=== PATIENT | male | born 1950 | race Caucasian/White ===

== ENCOUNTER 2017-03-11 21:13 | Inpatient (IN) | payer MEDICARE, OTHER, MEDICAID ==
[2017-03-11 22:04] VITALS: BP 136/78
[2017-03-11] MEDS ORDERED: Magnesium Hydroxide (MOM) 30 mL UDC PO PRN (22:11)
[2017-03-11] MEDS ORDERED: Haloperidol Lactate 5 mg/mL 1mL Vial IM ONE (22:53)
[2017-03-11] MEDS ORDERED: Haloperidol Lactate 5 mg/mL 1mL Vial ONE (23:09)
--- NOTE | 2017-03-12 09:44 | Psychosocial Evaluation ---
DATE OF SERVICE: 03/12/2017 IDENTIFYING DATA: The patient is a 66-year-old male, resident of the [facility]. Information obtained directly interviewing the patient as well as reviewing the admission paper. JUSTIFICATION FOR HOSPITALIZATION: The patient is admitted here on a voluntary basis in view of his agitation. CHIEF COMPLAINT: "I am upset for being in here. I do not know. They are not giving me my medications." HISTORY OF PRESENT ILLNESS: This is the first psychiatric hospitalization to [facility] for this patient who is reported to have been very agitated. The patient has been having difficult time to cope with the stress. The patient has to be brought in here because of his irritability and anger. Since the patient came in, the patient has been out of control and the patient has to be given a dose of the Haldol to calm him down. The patient during the interview is very agitated and pacing most of the time on the unit. PAST PSYCHIATRIC HISTORY: Details are not known. MEDICAL HISTORY: Physical examination is requested and by Dr. Millan. SUBSTANCE ABUSE HISTORY: None. PHYSICAL OR SEXUAL ABUSE HISTORY: None. MENTAL STATUS EXAMINATION: The patient is a 66-year-old, looking his stated age, cooperative. Eye contact is fair. Mood is irritable. Affect is constricted. Insight and judgment is noted to be impaired. Impulse control seems to be poor. Coping skills are noted to be extremely poor. The patient has been pacing on the unit. The patient has paranoid delusions, but denies any command hallucinations. The patient is alert and awake. The patient is fully aware that he is in the hospital, but patient ____. Short term memory is noted to be poor. Long-term memory seems to be fair. DIAGNOSTIC IMPRESSION: AXIS I: Psychotic disorder, not otherwise specified. AXIS II: None. AXIS III: As per Dr. Millan. IMMEDIATE TREATMENT PLAN: The patient is going to be observed on inpatient unit. Provided with supportive psychotherapy. The patient is going to be closely monitored and encouraged to participate in the groups and verbalize the concerns rather than to act out. JOB# [id number]
[2017-03-12] MEDS: Multivitamin w/ Minerals Tab PO SCH (10:02)
--- NOTE | 2017-03-12 13:34 | Internal Medicine Prog Note ---
Internal Medicine Subjective - Subjective Service Date: 03/12/17 ([id number] [facility] ) Internal Medicine Objective - Physical Exam Vitals and I&O: Vital Signs Temp 98 F 03/12/17 06:53 Pulse 90 03/12/17 06:53 Resp 20 03/12/17 06:53 BP 160/72 03/12/17 06:53 Pulse Ox 97 03/12/17 06:53 Intake & Output 03/11/17 03/12/17 03/12/17 18:59 06:59 18:59 Intake Total 480 Balance 480 Intake: Oral 480 Other: # Voids 1 Active Medications: Current Medications Acetaminophen (Tylenol) 650 mg PO Q4HR PRN PRN Reason: PAIN Stop: 05/10/17 22:10 Amlodipine Besylate (Norvasc) 10 mg PO DAILY JAJA Stop: 05/11/17 08:59 Last Admin: 03/12/17 10:02 Dose: Not Given Docusate Sodium (Colace) 100 mg PO BID PRN PRN Reason: Constipation Stop: 05/10/17 22:10 Donepezil HCl (Aricept) 5 mg PO HS JAJA Stop: 05/11/17 20:59 Hydrochlorothiazide (Hctz) 25 mg PO DAILY JAJA Stop: 05/11/17 08:59 Last Admin: 03/12/17 10:02 Dose: Not Given Lorazepam (Ativan) 0.5 mg PO Q4HR PRN; Protocol PRN Reason: Anxiety Stop: 04/10/17 22:08 Last Admin: 03/12/17 12:36 Dose: 0.5 mg Magnesium Hydroxide (Milk Of Magnesia) 30 ml PO DAILY PRN PRN Reason: Constipation Stop: 05/10/17 22:10 Quetiapine Fumarate (Seroquel) 50 mg PO HS JAJA PRN Reason: Protocol Stop: 05/10/17 22:59 Last Admin: 03/11/17 22:42 Dose: 50 mg Tamsulosin HCl (Flomax) 0.4 mg PO HS JAJA Stop: 05/11/17 20:59 Zolpidem Tartrate (Ambien) 5 mg PO HS PRN PRN Reason: Insomnia Stop: 05/10/17 22:17 Internal Medicine Assmt/Plan - Assessment Assessment: htn psychosis dementia bph
--- NOTE | 2017-03-12 13:52 | History & Physical ---
ADMIT DATE: 03/12/[address] Physical [address] Dr. Kal Millan. CHIEF COMPLAINT: Agitation. HISTORY OF PRESENT ILLNESS: This is a 66-year-old male who is a resident of [facility], who is now admitted to the Geropsych Unit due to agitation towards nursing staff. PAST MEDICAL HISTORY: Psychosis, BPH, hypertension, dementia. PAST SURGICAL HISTORY: Unknown. SOCIAL HISTORY: The patient is a [facility] resident, requiring 24-hour nursing care. MEDICATIONS: Norvasc, Colace, Aricept, hydrochlorothiazide, milk of magnesium, melatonin, MDI, Seroquel, and Flomax. FAMILY HISTORY: Noncontributory. REVIEW OF SYSTEMS: GENERAL: Denies any fevers or chills. CARDIOVASCULAR: Denies chest pain. RESPIRATORY: Denies shortness of breath. GASTROINTESTINAL: Denies nausea, vomiting, abdominal pain. GENITOURINARY: Denies increased frequency or dysuria. NEUROLOGIC: No headaches, seizures, or syncope. All other systems are reviewed and are negative. PHYSICAL EXAMINATION: GENERAL: This is an elderly male, awake with confusion, no apparent distress. VITAL SIGNS: Temperature 98, heart rate 90, blood pressure 116/72, respirations 20, O2 97%. HEENT: Head; normocephalic, atraumatic. NECK: Supple. No mass. LUNGS: Clear bilaterally. HEART: Regular rate and rhythm. ABDOMEN: Soft, nontender. LABORATORY DATA: There are no labs. ASSESSMENT: 1. Agitation. 2. Psychosis. 3. Benign prostatic hypertrophy, hypertension, dementia. PLAN: We will adjust the patient's blood pressure medications accordingly. Fall precautions will be initiated. We will continue to follow this patient. [facility]# [id number]
--- NOTE | 2017-03-12 16:45 | ER Physician Documentation ---
DATE OF SERVICE: 03/11/2017 EMERGENCY ROOM EVALUATION AND TREATMENT A 66-year-old male patient. The patient was sent by Dr. Millan from [facility] located at [address] [place] [id number]. Telephone number [phone]. The reason for sending the patient, the patient was having rough language, and disoriented to time and place, and was shouting and screaming and not cooperative, hence they sent the patient over here. I do not have much more information. The patient's primary physician is Dr. Kal Millan. Alternate physician is Dr. Al Campbell. Psychiatrist is Dr. Gin Berry. ENT specialist is Dr. Bryan Milan. Pharmacist number is [phone]. HISTORY OF PRESENT ILLNESS: The patient is not in a position to give any history of present illness. Review of systems could not be obtained from the patient. The patient mumbles and says different things, and asked me to read different alphabets which are 1, 2, 3, A, B, C, some of those things were written like that I read and showed it to him, but I do not think anything goes into his brain what I read. OTHER MEDICAL HISTORY: Includes that he has hypertension. He has benign prostatic hypertrophy. He has schizophrenia. He has anxiety neurosis. He has unsteadiness on the feet. He has cognitive communication disorder. The patient does not have any urinary tract infection. He has unspecified dementia with behavioral disturbances, paranoid schizophrenia, anxiety disorder, other specified post-procedural status; cannabis abuse, uncomplicated; nicotine dependence, unspecified, complicated. PHYSICAL EXAMINATION: VITAL SIGNS: Shows temperature of 98.2, pulse of 85, respirations of 18, blood pressure 133/88, and 97% saturated and 5 feet 10 inches height, weighing 180 pounds. GENERAL: The patient appears to be awake, alert, oriented. The patient is comfortable. He is in bed. He did not allow the nurse to put the pads to check the patient's heart rate, etc. EKG has been ordered. We will look at it. HEENT: Conjunctivae are pink, sclerae are white. Normal. NECK: Jugular venous pressure is normal. PSYCHIATRIC: The patient is put in bed #5. Main complaint was agitation and aggressive behavior. The patient was not having aggressive behavior here in the Emergency Room, neither was he agitated. He says he should gain strength is about 2 days' time. NEUROLOGIC: Showed that he is not edematous. He does not have any tremors. He does not have any jerking motions or any evidence of DTs or any other alcohol smell or any other smell. He does not seem to be like having cough or flu like symptoms, etc. Overall, general exam, besides being aggressive behavior, some agitation in the past, appears to be within normal limits. No edema, no cyanosis, no petechia, no ecchymosis. No meningeal signs. Reflexes appear to be normal. Plantars are downgoing. Central nervous system is grossly otherwise, besides dementia, aggressive behavior, anxiety, schizophrenia, appears to be within ____ and the other diagnoses that I gave, other than that no other diagnosis is mentioned ____. CHEST: Chest is clear, trachea being central. Slightly emphysematous chest wall. Good air entry in both lungs. No rales, no rhonchi. No bronchial breathing. No evidence of deformity of the chest wall. HEART: Reveals PMI is seen and located in the left fifth intercostal space in the midclavicular line. S1, S2 are normal. Fourth heart sound is heard, third heart sound is absent, second heart sound is physiologically split. No abnormal murmur. No diastolic murmur. No pathological murmur. No pleural or pericardial rub. ABDOMEN: Soft. Liver and spleen not enlarged. Abdomen is slightly protuberant, but liver and spleen not enlarged. No free fluid in the abdominal cavity. Do not appreciate any ascites. No evidence of any hernia. Bowel sounds are normal. CENTRAL NERVOUS SYSTEM: He is otherwise moving all his extremities, and has this aggressive behavior. The patient will be checked here to see if the patient has any medical problem. If no medical problem is detected, clinically, I do not find any significant condition, so if the labs and EKG are found to be normal, then the patient will be admitted to a general psych facility. The patient has [employer] insurance, Medicare number is [phone], ____. On the most recent hospital stay, the patient was given metformin and penicillin, so I am not sure whether the patient is diabetic or not, but we will know it after we get some lab results back, and penicillin, I am not sure whether he is allergic to penicillin or he was given penicillin to treat his medical condition. BPH is there, so we will just order a PSA level, which is not hard to get and hard to do. CLINICAL IMPRESSION: The patient was sent here from [facility] by permission from Dr. Millan for evaluation, and we will evaluate the patient medically. I do not find anything significantly wrong as far as medical condition is concerned other than agitation history, aggressive behavior history, hypertension, benign prostatic hypertrophy, schizophrenia, anxiety, and beside that the patient has history of unsteadiness on the feet. He is bedridden status. He was brought on a stretcher. He is kept on a stretcher in our unit. He has communication deficit. He does not have any lower urinary tract infection even though he has benign prostatic hypertrophy, most of the patient with urinary tract infection are with BPH. The patient has paranoid schizophrenia, anxiety disorder, and unspecified post-procedural seizures. Cannabis abuse in the past, uncomplicated. Nicotine dependence in the past, unspecified, complicated. The plan is to get some lab workup done, get an EKG done, and if everything is normal, the patient's psychiatrist will be called and the patient will be admitted to general psychiatric unit. JOB# [id number]
[2017-03-12] MEDS ORDERED: Non-Formulary Item 1 EA (Melatonin [Melatonin] 3 MG) PO SCH (21:00)
[2017-03-13] MEDS: Multivitamin w/ Minerals Tab PO SCH (09:44)
[2017-03-13] MEDS ORDERED: guaiFENesin 200 MG/10 ML UDC PO PRN (13:44)
--- NOTE | 2017-03-13 13:45 | Internal Medicine Prog Note ---
Internal Medicine Subjective - Subjective Patient seen and examined:: with staff, chart reviewed Patient is:: awake, verbal, interactive Patient Complaints of:: congestion, cough Per staff patient has:: no adverse event, eating well Internal Medicine Objective - Physical Exam Vitals and I&O: Vital Signs Temp 97.8 F 03/13/17 06:30 Pulse 81 03/13/17 09:44 Resp 20 03/13/17 06:30 BP 146/88 03/13/17 09:44 Pulse Ox 95 03/13/17 06:30 Intake & Output 03/12/17 03/13/17 03/13/17 18:59 06:59 18:59 Intake Total 960 Balance 960 Intake: Oral 960 Other: # Voids 2 # Bowel Movements 0 Active Medications: Current Medications Acetaminophen (Tylenol) 650 mg PO Q4HR PRN PRN Reason: PAIN Stop: 05/10/17 22:10 Last Admin: 03/12/17 17:09 Dose: 650 mg Amlodipine Besylate (Norvasc) 10 mg PO DAILY COUNT INCLUDES THE [facility] Stop: 05/11/17 08:59 Last Admin: 03/13/17 09:44 Dose: 10 mg Docusate Sodium (Colace) 100 mg PO BID PRN PRN Reason: Constipation Stop: 05/10/17 22:10 Donepezil HCl (Aricept) 5 mg PO HS COUNT INCLUDES THE [facility] Stop: 05/11/17 20:59 Last Admin: 03/12/17 20:55 Dose: 5 mg Hydrochlorothiazide (Hctz) 25 mg PO DAILY JAJA Stop: 05/11/17 08:59 Last Admin: 03/13/17 09:43 Dose: 25 mg Lorazepam (Ativan) 0.5 mg PO Q4HR PRN; Protocol PRN Reason: Anxiety Stop: 04/10/17 22:08 Last Admin: 03/13/17 09:44 Dose: 0.5 mg Magnesium Hydroxide (Milk Of Magnesia) 30 ml PO DAILY PRN PRN Reason: Constipation Stop: 05/10/17 22:10 Quetiapine Fumarate (Seroquel) 50 mg PO HS COUNT INCLUDES THE [facility] PRN Reason: Protocol Stop: 05/10/17 22:59 Last Admin: 03/12/17 20:55 Dose: 50 mg Tamsulosin HCl (Flomax) 0.4 mg PO HS COUNT INCLUDES THE [facility] Stop: 05/11/17 20:59 Last Admin: 03/12/17 20:55 Dose: 0.4 mg Zolpidem Tartrate (Ambien) 5 mg PO HS PRN PRN Reason: Insomnia Stop: 05/10/17 22:17 Last Admin: 03/12/17 20:55 Dose: 5 mg General: alert, disheveled HEENT: NC/AT, PERRLA, EOMI Neck: Supple, No JVD Lungs: congested Cardiovascular: RRR, Normal S1, Normal S2 Abdomen: soft, non-tender, tender Extremities: excoriation, ecchymosis Neurological: no change, alert, disorganized Internal Medicine Assmt/Plan - Assessment Assessment: - Assessment Assessment: htn psychosis dementia bph cough - Plan Plan: cont on bp meds will add robitussin dayron ugalde rn
--- NOTE | 2017-03-13 20:23 | Progress Notes ---
DATE: 03/13/2017 SUBJECTIVE: Staff was spoken to. The patient is interviewed. Mood is noted to be irritable. Affect is constricted. Coping skills are noted to be poor. The patient is very irritable and angry and stating that he could not figure it out why he has to be in here, he needs all his belongings to be given to him by interviewing. The patient has been very impulsive and he needs to be redirected. The patient is not able to contract for safety at this time. ASSESSMENT: The patient is still psychotic and impulsive. PLAN: To continue the patient with the supportive therapy and followup. JOB# [id number]
[2017-03-14] MEDS: Multivitamin w/ Minerals Tab PO SCH (08:30)
--- NOTE | 2017-03-14 13:10 | Internal Medicine Prog Note ---
Internal Medicine Subjective - Subjective Patient seen and examined:: with staff, chart reviewed Patient is:: awake, verbal, interactive Patient Complaints of:: congestion, cough Per staff patient has:: no adverse event, eating well Internal Medicine Objective - Physical Exam Vitals and I&O: Vital Signs Temp 98.4 F 03/14/17 06:36 Pulse 65 03/14/17 08:30 Resp 19 03/14/17 06:36 BP 140/75 03/14/17 08:30 Pulse Ox 96 03/14/17 06:36 Intake & Output 03/13/17 03/14/17 03/14/17 18:59 06:59 18:59 Intake Total 240 Balance 240 Intake: Oral 240 Other: # Voids 3 # Bowel Movements 0 Active Medications: Current Medications Acetaminophen (Tylenol) 650 mg PO Q4HR PRN PRN Reason: PAIN Stop: 05/10/17 22:10 Last Admin: 03/12/17 17:09 Dose: 650 mg Amlodipine Besylate (Norvasc) 10 mg PO DAILY [facility] Stop: 05/11/17 08:59 Last Admin: 03/14/17 08:30 Dose: 10 mg Docusate Sodium (Colace) 100 mg PO BID PRN PRN Reason: Constipation Stop: 05/10/17 22:10 Donepezil HCl (Aricept) 5 mg PO HS [facility] Stop: 05/11/17 20:59 Last Admin: 03/13/17 21:07 Dose: Not Given Guaifenesin (Robitussin) 200 mg PO Q4H PRN PRN Reason: Cough or Congestion Stop: 05/12/17 13:43 Hydrochlorothiazide (Hctz) 25 mg PO DAILY [facility] Stop: 05/11/17 08:59 Last Admin: 03/14/17 08:30 Dose: 25 mg Lorazepam (Ativan) 0.5 mg PO Q4HR PRN; Protocol PRN Reason: Anxiety Stop: 04/10/17 22:08 Last Admin: 03/14/17 08:31 Dose: 0.5 mg Magnesium Hydroxide (Milk Of Magnesia) 30 ml PO DAILY PRN PRN Reason: Constipation Stop: 05/10/17 22:10 Quetiapine Fumarate (Seroquel) 50 mg PO HS [facility] PRN Reason: Protocol Stop: 05/10/17 22:59 Last Admin: 03/13/17 21:07 Dose: 50 mg Tamsulosin HCl (Flomax) 0.4 mg PO HS JAJA Stop: 05/11/17 20:59 Last Admin: 03/13/17 21:07 Dose: 0.4 mg Zolpidem Tartrate (Ambien) 5 mg PO HS PRN PRN Reason: Insomnia Stop: 05/10/17 22:17 Last Admin: 03/12/17 20:55 Dose: 5 mg General: alert, disheveled HEENT: NC/AT, PERRLA, EOMI Neck: Supple, No JVD Lungs: congested Cardiovascular: RRR, Normal S1, Normal S2 Abdomen: soft, non-tender, tender Extremities: excoriation, ecchymosis Neurological: no change, alert, disorganized Internal Medicine Assmt/Plan - Assessment Assessment: - Assessment Assessment: htn psychosis dementia bph cough - Plan Plan: cont on bp meds will add robitussin dayron ugalde rn
--- NOTE | 2017-03-15 00:13 | Consultation ---
DATE OF CONSULTATION: 03/13/2017 REQUESTING PHYSICIAN: Vasquez Fernández M.D. HISTORY OF PRESENT ILLNESS: The following is by patient report as well as review of medical record. According to record review, the patient is a 66-year-old male who is a resident of [facility]. The patient is being admitted here on a voluntary basis due to increased agitation with staff at his senior living facility. The patient according to the staff at his facility, was having difficulty with regulating his emotions. The patient has been increasingly irritable and angry and difficult to redirect. Upon interview, the patient states that he has not been receiving the correct medications and that he does not see why he has been hospitalized. The patient is restless. The staff here has reported the patient pacing on the unit with poor behavioral redirectability. The patient denied any suicidal ideation, plan or intention at this time. PAST MEDICAL HISTORY: Please see history and physical by Dr. Millan. PAST PSYCHIATRIC HISTORY: This history is unknown at this time. CURRENT MEDICATIONS: Please see medication reconciliation sheet. SUBSTANCE ABUSE HISTORY: None reported or noted. The patient denied any history. PSYCHOSOCIAL HISTORY: The patient lives at [facility]. The patient states no specific confucianism affiliation. The patient did not answer questions about occupational history or educational history. The patient did not answer questions about family members or family history. MENTAL STATUS EXAMINATION: The patient appears to be younger than his stated age. The patient's attitude is guarded and mostly uncooperative. Eye contact is poor. Speech is spontaneous. Mood is irritable. Affect is constricted. Thought process shows to be fixated on discharge as well as medication. The patient's thought process is somewhat concrete, but linear in nature. The patient denied any suicidal ideation, plan or intention. There are some signs of paranoid ideation. The patient denied any auditory or visual hallucinations. The patient's behavior has been restless on the unit and pacing back and forth with poor behavioral redirectability. Impulse control is poor. Concentration is inadequate. The patient was unable to perform the memory evaluation. The patient was able to give answers to milestones. Long-term memory seems to be fair. Short term memory and immediate memory are somewhat impaired. This needs further evaluation. NEUROLOGIC: Sensorium is alert and oriented to person and place, but not date or time. The patient did not perform a logical interpretation of proverbs. Insight is poor. Judgment is compromised. 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 AXIS II: Deferred. AXIS III: Please see history and physical per Dr. Millan. PLAN: The patient has been seen by Dr. Fernández for psychiatric evaluation and evaluation of the patient's psychotropic medications as well as medication management. The patient had been started on Haldol to help calm him down. The patient is to be closely monitored and encouraged to participate in groups and milieu therapy. We will provide supportive therapy as well as reality testing, reality orientation and integration. We will provide de-escalation for the patient to become less agitated. We will provide coping strategies for chronic mental illness. We will provide adjustment to the patient's current circumstances and provide motivational enhancement for him to become compliant with all aspects of his care and treatment without verbally acting out. Once the patient has been stabilized, most likely he will return to [facility] and be followed by both Psychiatry and Psychology at his senior living facility. Thank you, Dr. Fernández for this consult and the opportunity to participate with you in your patient's care. JOB# [id number] MARIANNA
--- NOTE | 2017-03-15 03:44 | Progress Notes ---
DATE: 03/14/2017 SUBJECTIVE: Staff was spoken to. The patient is interviewed. Mood is noted to be irritable. Affect is constricted. Insight and judgment is noted to be still impaired. Impulse control is poor. The patient is going on a tangent. The patient has not been able to contact for safety. The patient has been pacing most of the time on the unit. The patient is very irritable and angry and is talking about the cold and stating that everyone has to salute to him. The patient has been displaying acute mood swings rather than adding a mood stabilizer right away. We have been planning to go with the higher dose on the Seroquel first and try to closely monitor the patient if it is not going to be doing that job, possibly the patient is going to be added with the Depakote and followed up with the supportive therapy. ASSESSMENT: The patient is still grossly psychotic and is responding to internal stimuli. PLAN: To closely monitor the patient. I encouraged the patient to verbalize the concerns rather than to act out. JOB# [id number]
[2017-03-15] MEDS: Multivitamin w/ Minerals Tab PO SCH (08:02)
--- NOTE | 2017-03-15 13:46 | Internal Medicine Prog Note ---
Internal Medicine Subjective - Subjective Service Date: 03/15/17 Patient is:: awake, verbal, interactive Patient Complaints of:: congestion, cough Per staff patient has:: no adverse event, eating well Internal Medicine Objective - Physical Exam Vitals and I&O: Vital Signs Temp 97.9 F 03/15/17 05:45 Pulse 72 03/15/17 08:03 Resp 20 03/15/17 05:45 BP 131/79 03/15/17 08:03 Pulse Ox 94 03/15/17 05:45 Intake & Output 03/14/17 03/15/17 03/15/17 18:59 06:59 18:59 Intake Total 360 Balance 360 Intake: Oral 360 Other: # Voids 2 # Bowel Movements 0 Active Medications: Current Medications Acetaminophen (Tylenol) 650 mg PO Q4HR PRN PRN Reason: PAIN Stop: 05/10/17 22:10 Last Admin: 03/12/17 17:09 Dose: 650 mg Amlodipine Besylate (Norvasc) 10 mg PO DAILY [facility] Stop: 05/11/17 08:59 Last Admin: 03/15/17 08:03 Dose: 10 mg Divalproex Sodium (Depakote Dr) 250 mg PO BID JAJA PRN Reason: Protocol Stop: 05/14/17 08:59 Docusate Sodium (Colace) 100 mg PO BID PRN PRN Reason: Constipation Stop: 05/10/17 22:10 Last Admin: 03/15/17 08:02 Dose: 100 mg Donepezil HCl (Aricept) 5 mg PO HS [facility] Stop: 05/11/17 20:59 Last Admin: 03/14/17 20:58 Dose: 5 mg Guaifenesin (Robitussin) 200 mg PO Q4H PRN PRN Reason: Cough or Congestion Stop: 05/12/17 13:43 Last Admin: 03/15/17 10:25 Dose: 200 mg Hydrochlorothiazide (Hctz) 25 mg PO DAILY JAJA Stop: 05/11/17 08:59 Last Admin: 03/15/17 08:02 Dose: 25 mg Lorazepam (Ativan) 0.5 mg PO Q4HR PRN; Protocol PRN Reason: Anxiety Stop: 04/10/17 22:08 Last Admin: 03/15/17 10:24 Dose: 0.5 mg Magnesium Hydroxide (Milk Of Magnesia) 30 ml PO DAILY PRN PRN Reason: Constipation Stop: 05/10/17 22:10 Quetiapine Fumarate (Seroquel) 50 mg PO BID JAJA PRN Reason: Protocol Stop: 05/14/17 08:59 Last Admin: 03/15/17 08:02 Dose: 50 mg Tamsulosin HCl (Flomax) 0.4 mg PO HS JAJA Stop: 05/11/17 20:59 Last Admin: 03/14/17 20:58 Dose: 0.4 mg Zolpidem Tartrate (Ambien) 5 mg PO HS PRN PRN Reason: Insomnia Stop: 05/10/17 22:17 Last Admin: 03/14/17 20:58 Dose: 5 mg General: alert, disheveled HEENT: NC/AT, PERRLA, EOMI Neck: Supple, No JVD Lungs: congested Cardiovascular: RRR, Normal S1, Normal S2 Abdomen: soft, non-tender, tender Extremities: excoriation, ecchymosis Neurological: no change, alert, disorganized Internal Medicine Assmt/Plan - Assessment Assessment: htn psychosis dementia bph
--- NOTE | 2017-03-15 16:04 | Progress Notes ---
DATE: 03/15/2017 PSYCHIATRIC PROGRESS NOTE SUBJECTIVE: Staff was spoken to. The patient is interviewed. Mood is noted to be irritable. Affect is constricted. The patient is not making any sense. The patient is going on a tangent. The patient has no clue of what he is talking. The patient's Seroquel has been increased to 50 mg twice a day yesterday and still the patient has not been able to contract for safety. The patient is very intrusive. In view of that one, it is decided to start the patient on Depakote DR, which is going to be given at 250 mg twice a day for mood swings and irritability and the patient is going to be followed up with supportive therapy. PLAN: To continue the patient's close monitoring and followup. JOB# [id number]
[2017-03-16] MEDS: Multivitamin w/ Minerals Tab PO SCH (08:19)
--- NOTE | 2017-03-16 15:22 | Internal Medicine Prog Note ---
Internal Medicine Subjective - Subjective Service Date: 03/16/17 Patient is:: awake, verbal, interactive Patient Complaints of:: congestion, cough Per staff patient has:: no adverse event, eating well Internal Medicine Objective - Physical Exam Vitals and I&O: Vital Signs Temp 97.4 F 03/15/17 14:00 Pulse 69 03/16/17 09:56 Resp 20 03/16/17 09:56 BP 111/61 03/16/17 13:28 Pulse Ox 97 03/15/17 14:00 Intake & Output 03/15/17 03/16/17 03/16/17 18:59 06:59 18:59 Intake Total 900 Balance 900 Intake: Oral 900 Other: # Voids 3 # Bowel Movements 1 Active Medications: Current Medications Acetaminophen (Tylenol) 650 mg PO Q4HR PRN PRN Reason: PAIN Stop: 05/10/17 22:10 Last Admin: 03/12/17 17:09 Dose: 650 mg Amlodipine Besylate (Norvasc) 10 mg PO DAILY JAJA Stop: 05/11/17 08:59 Last Admin: 03/16/17 08:19 Dose: 10 mg Divalproex Sodium (Depakote Dr) 250 mg PO BID JAJA PRN Reason: Protocol Stop: 05/15/17 08:59 Last Admin: 03/16/17 09:16 Dose: 250 mg Docusate Sodium (Colace) 100 mg PO BID PRN PRN Reason: Constipation Stop: 05/10/17 22:10 Last Admin: 03/16/17 08:19 Dose: 100 mg Donepezil HCl (Aricept) 5 mg PO HS JAJA Stop: 05/11/17 20:59 Last Admin: 03/15/17 21:01 Dose: 5 mg Guaifenesin (Robitussin) 200 mg PO Q4H PRN PRN Reason: Cough or Congestion Stop: 05/12/17 13:43 Last Admin: 03/15/17 10:25 Dose: 200 mg Hydrochlorothiazide (Hctz) 25 mg PO DAILY JAJA Stop: 05/11/17 08:59 Last Admin: 03/16/17 13:28 Dose: Not Given Lorazepam (Ativan) 0.5 mg PO Q4HR PRN; Protocol PRN Reason: Anxiety Stop: 04/10/17 22:08 Last Admin: 03/16/17 08:19 Dose: 0.5 mg Magnesium Hydroxide (Milk Of Magnesia) 30 ml PO DAILY PRN PRN Reason: Constipation Stop: 05/10/17 22:10 Quetiapine Fumarate (Seroquel) 50 mg PO BID JAJA PRN Reason: Protocol Stop: 05/14/17 08:59 Last Admin: 03/16/17 08:19 Dose: 50 mg Tamsulosin HCl (Flomax) 0.4 mg PO HS JAJA Stop: 05/11/17 20:59 Last Admin: 03/15/17 21:01 Dose: 0.4 mg Zolpidem Tartrate (Ambien) 5 mg PO HS PRN PRN Reason: Insomnia Stop: 05/10/17 22:17 Last Admin: 03/15/17 21:01 Dose: 5 mg General: alert, disheveled HEENT: NC/AT, PERRLA, EOMI Neck: Supple, No JVD Lungs: congested Cardiovascular: RRR, Normal S1, Normal S2 Abdomen: soft, non-tender, tender Extremities: excoriation, ecchymosis Neurological: no change, alert, disorganized Internal Medicine Assmt/Plan - Assessment Assessment: htn psychosis dementia bph Nutritional Asmnt/Malnutr-PDOC - Dietary Evaluation Malnutrition Findings (Please click <Entered> for more info): Nutritional Asmnt/Malnutrition Start: 03/16/17 14: 18 Text: Status: Complete Freq: Document 03/16/17 14:18 LCHENG (Rec: 03/16/17 14:26 LCHENG [email or web address]) Nutritional Asmnt/Malnutrition Patient General Information Nutritional Screening Moderate Risk Diagnosis psychosis Pertinent Medical Hx/Surgical Hx psychosis, BPH, HTN, dementia Subjective Information Pt seen eating lunch in his room at time of visit, easily irritable. Per notes, PO intake 100% x 3 meals on 03/05. Current Diet Order/ Nutrition Support mech soft chopped, PAULINA Pertinent Medications colace, seroquel Pertinent Labs no labs available Nutritional Hx/Data Height 5 ft 10 in Height (Calculated Centimeters) 177.8 Current Weight (lbs) 180 lb Weight (Calculated Kilograms) 81.6 Weight (Calculated Grams) 11652.6 [place] Body Weight 166 % [place] Body Weight 108 Body Mass Index (BMI) 25.8 Weight Status Overweight GI Symptoms GI Symptoms None Last BM 03/15 Difficult in: None Skin Integrity/Comment: skin tear to right arm Current %PO Good (75-100%) Estimated Nutritional Goals Calories/Kcals/Kg 25-30 based on IBW 75kg Kcals Calculated 5246-9133 Protein g/k Protein Calculated 75 Fluid: ml 1875-2250ml (1ml/kcal) Nutritional Problem No current Nutrition Prob Problem N/A Malnutrition Alert Protein-Calorie Malnutrition N/A Is there a minimum of two criteria No selected? Query Text:Check all the applicable criteria. A minimum of two criteria are recommended for diagnosis of either severe or non-severe malnutrition. Intervention/Recommendation Comments 1. Continue with current diet as ordered. 2. Monitor PO intake, wt, labs and skin integrity 3. F/U as low risk in 7 days, 2/1 Expected Outcomes/Goals Expected Outcomes/Goals 1. PO intake to meet at least 75% of nutritional needs. 2. Wt stability, skin to remain intact.
--- NOTE | 2017-03-17 01:01 | Progress Notes ---
DATE: 03/16/2017 PSYCHIATRIC PROGRESS NOTE SUBJECTIVE: Staff was spoken to. The patient is interviewed. Mood is noted to be irritable. Affect is constricted. Insight and judgment at this time are noted to be still impaired. Impulse control is noted to be limited. Coping skills are noted to be very poor. The patient is still responding to internal stimuli. ASSESSMENT: The patient still is psychotic. PLAN: To continue the patient with the current medications. I encouraged the patient to verbalize the concerns rather than to act out. [facility]# [id number]
[2017-03-17] MEDS: Multivitamin w/ Minerals Tab PO SCH (08:35)
--- NOTE | 2017-03-17 13:24 | Internal Medicine Prog Note ---
Internal Medicine Subjective - Subjective Service Date: 03/17/17 Patient is:: awake, verbal, interactive Patient Complaints of:: congestion, cough Per staff patient has:: no adverse event, eating well Internal Medicine Objective - Physical Exam Vitals and I&O: Vital Signs Temp 98.1 F 03/16/17 20:00 Pulse 74 03/17/17 08:35 Resp 19 03/16/17 20:00 BP 132/87 03/17/17 08:36 Pulse Ox 94 03/16/17 20:00 Intake & Output 03/16/17 03/17/17 03/17/17 18:59 06:59 18:59 Intake Total 1000 250 Balance 1000 250 Intake: Oral 1000 250 Other: # Voids 3 2 # Bowel Movements 1 1 Stool Characteristics Soft Formed Active Medications: Current Medications Acetaminophen (Tylenol) 650 mg PO Q4HR PRN PRN Reason: PAIN Stop: 05/10/17 22:10 Last Admin: 03/12/17 17:09 Dose: 650 mg Amlodipine Besylate (Norvasc) 10 mg PO DAILY [facility] Stop: 05/11/17 08:59 Last Admin: 03/17/17 08:35 Dose: 10 mg Divalproex Sodium (Depakote Dr) 250 mg PO BID JAJA PRN Reason: Protocol Stop: 05/15/17 08:59 Last Admin: 03/17/17 08:36 Dose: 250 mg Docusate Sodium (Colace) 100 mg PO BID PRN PRN Reason: Constipation Stop: 05/10/17 22:10 Last Admin: 03/16/17 08:19 Dose: 100 mg Donepezil HCl (Aricept) 5 mg PO HS [facility] Stop: 05/11/17 20:59 Last Admin: 03/16/17 21:09 Dose: 5 mg Guaifenesin (Robitussin) 200 mg PO Q4H PRN PRN Reason: Cough or Congestion Stop: 05/12/17 13:43 Last Admin: 03/15/17 10:25 Dose: 200 mg Hydrochlorothiazide (Hctz) 25 mg PO DAILY [facility] Stop: 05/11/17 08:59 Last Admin: 03/17/17 08:36 Dose: 25 mg Lorazepam (Ativan) 0.5 mg PO Q4HR PRN; Protocol PRN Reason: Anxiety Stop: 04/10/17 22:08 Last Admin: 03/16/17 21:08 Dose: 0.5 mg Magnesium Hydroxide (Milk Of Magnesia) 30 ml PO DAILY PRN PRN Reason: Constipation Stop: 05/10/17 22:10 Quetiapine Fumarate (Seroquel) 100 mg PO BID JAJA PRN Reason: Protocol Stop: 05/14/17 08:59 Tamsulosin HCl (Flomax) 0.4 mg PO HS JAJA Stop: 05/11/17 20:59 Last Admin: 03/16/17 21:09 Dose: 0.4 mg Zolpidem Tartrate (Ambien) 5 mg PO HS PRN PRN Reason: Insomnia Stop: 05/10/17 22:17 Last Admin: 03/16/17 21:09 Dose: 5 mg General: alert, disheveled HEENT: NC/AT, PERRLA, EOMI Neck: Supple, No JVD Lungs: congested Cardiovascular: RRR, Normal S1, Normal S2 Abdomen: soft, non-tender, tender Extremities: excoriation, ecchymosis Neurological: no change, alert, disorganized Internal Medicine Assmt/Plan - Assessment Assessment: htn psychosis dementia bph - Plan Plan: monitor bp continue current plan of care Nutritional Asmnt/Malnutr-PDOC - Dietary Evaluation Malnutrition Findings (Please click <Entered> for more info): Nutritional Asmnt/Malnutrition Start: 03/16/17 14: 18 Text: Status: Complete Freq: Document 03/16/17 14:18 LCHENG (Rec: 03/16/17 14:26 LCHENG [email or web address]) Nutritional Asmnt/Malnutrition Patient General Information Nutritional Screening Moderate Risk Diagnosis psychosis Pertinent Medical Hx/Surgical Hx psychosis, BPH, HTN, dementia Subjective Information Pt seen eating lunch in his room at time of visit, easily irritable. Per notes, PO intake 100% x 3 meals on 03/05. Current Diet Order/ Nutrition Support mech soft chopped, PAULINA Pertinent Medications colace, seroquel Pertinent Labs no labs available Nutritional Hx/Data Height 5 ft 10 in Height (Calculated Centimeters) 177.8 Current Weight (lbs) 180 lb Weight (Calculated Kilograms) 81.6 Weight (Calculated Grams) 93953.6 [place] Body Weight 166 % [place] Body Weight 108 Body Mass Index (BMI) 25.8 Weight Status Overweight GI Symptoms GI Symptoms None Last BM 03/15 Difficult in: None Skin Integrity/Comment: skin tear to right arm Current %PO Good (75-100%) Estimated Nutritional Goals Calories/Kcals/Kg 25-30 based on IBW 75kg Kcals Calculated 7033-2721 Protein g/k Protein Calculated 75 Fluid: ml 1875-2250ml (1ml/kcal) Nutritional Problem No current Nutrition Prob Problem N/A Malnutrition Alert Protein-Calorie Malnutrition N/A Is there a minimum of two criteria No selected? Query Text:Check all the applicable criteria. A minimum of two criteria are recommended for diagnosis of either severe or non-severe malnutrition. Intervention/Recommendation Comments 1. Continue with current diet as ordered. 2. Monitor PO intake, wt, labs and skin integrity 3. F/U as low risk in 7 days, 2/1 Expected Outcomes/Goals Expected Outcomes/Goals 1. PO intake to meet at least 75% of nutritional needs. 2. Wt stability, skin to remain intact.
--- NOTE | 2017-03-17 16:30 | Progress Notes ---
DATE: 03/17/2017 SUBJECTIVE: Staff was spoken to. The patient is interviewed. Mood is noted to be irritable. Affect is constricted. Continues to be irritable and angry. The patient is actively responding to internal stimuli. Currently, he is on 50 mg twice a day of the Seroquel and has been able to tolerate the medications. No side effects to the medications are noted. The patient is also placed on the Depakote low dose to contain the patient's mood swings. The patient has been able to tolerate. ASSESSMENT: The patient is still impulsive and psychotic. PLAN: To increase the dose on the Seroquel to 500 mg twice a day and follow. JOB# [id number]
[2017-03-18] MEDS: Multivitamin w/ Minerals Tab PO SCH (09:44)
--- NOTE | 2017-03-18 10:43 | Internal Medicine Prog Note ---
Internal Medicine Subjective - Subjective Patient seen and examined:: with staff, chart reviewed Patient is:: awake, verbal, interactive Patient Complaints of:: congestion, cough Per staff patient has:: no adverse event, eating well Internal Medicine Objective - Physical Exam Vitals and I&O: Vital Signs Temp 97.2 F 03/17/17 16:16 Pulse 64 03/18/17 09:44 Resp 18 03/17/17 16:16 BP 123/84 03/18/17 09:44 Pulse Ox 98 03/17/17 16:16 Intake & Output 03/17/17 03/18/17 03/18/17 18:59 06:59 18:59 Intake Total 1000 Balance 1000 Intake: Oral 1000 Other: # Voids 3 # Bowel Movements 1 Active Medications: Current Medications Acetaminophen (Tylenol) 650 mg PO Q4HR PRN PRN Reason: PAIN Stop: 05/10/17 22:10 Last Admin: 03/12/17 17:09 Dose: 650 mg Amlodipine Besylate (Norvasc) 10 mg PO DAILY JAJA Stop: 05/11/17 08:59 Last Admin: 03/18/17 09:44 Dose: 10 mg Divalproex Sodium (Depakote Dr) 250 mg PO BID JAJA PRN Reason: Protocol Stop: 05/15/17 08:59 Last Admin: 03/18/17 09:44 Dose: 250 mg Docusate Sodium (Colace) 100 mg PO BID PRN PRN Reason: Constipation Stop: 05/10/17 22:10 Last Admin: 03/16/17 08:19 Dose: 100 mg Donepezil HCl (Aricept) 5 mg PO HS JAJA Stop: 05/11/17 20:59 Last Admin: 03/17/17 20:35 Dose: 5 mg Guaifenesin (Robitussin) 200 mg PO Q4H PRN PRN Reason: Cough or Congestion Stop: 05/12/17 13:43 Last Admin: 03/15/17 10:25 Dose: 200 mg Hydrochlorothiazide (Hctz) 25 mg PO DAILY JAJA Stop: 05/11/17 08:59 Last Admin: 03/18/17 09:43 Dose: 25 mg Lorazepam (Ativan) 0.5 mg PO Q4HR PRN; Protocol PRN Reason: Anxiety Stop: 04/10/17 22:08 Last Admin: 03/16/17 21:08 Dose: 0.5 mg Magnesium Hydroxide (Milk Of Magnesia) 30 ml PO DAILY PRN PRN Reason: Constipation Stop: 05/10/17 22:10 Quetiapine Fumarate (Seroquel) 100 mg PO BID JAJA PRN Reason: Protocol Stop: 05/14/17 08:59 Last Admin: 03/18/17 09:43 Dose: 100 mg Tamsulosin HCl (Flomax) 0.4 mg PO HS JAJA Stop: 05/11/17 20:59 Last Admin: 03/17/17 20:35 Dose: 0.4 mg Zolpidem Tartrate (Ambien) 5 mg PO HS PRN PRN Reason: Insomnia Stop: 05/10/17 22:17 Last Admin: 03/17/17 20:35 Dose: 5 mg General: alert, disheveled HEENT: NC/AT, PERRLA, EOMI Neck: Supple, No JVD Lungs: congested Cardiovascular: RRR, Normal S1, Normal S2 Abdomen: soft, non-tender, tender Extremities: excoriation, ecchymosis Neurological: no change, alert, disorganized Internal Medicine Assmt/Plan - Assessment Assessment: - Assessment Assessment: htn psychosis dementia bph cough - Plan Plan: cont on bp meds will add robitussin cpm tram rn Nutritional Asmnt/Malnutr-PDOC - Dietary Evaluation Malnutrition Findings (Please click <Entered> for more info): Nutritional Asmnt/Malnutrition Start: 03/16/17 14: 18 Text: Status: Complete Freq: Document 03/16/17 14:18 JORDON (Rec: 03/16/17 14:[email or web address] Nutritional Asmnt/Malnutrition Patient General Information Nutritional Screening Moderate Risk Diagnosis psychosis Pertinent Medical Hx/Surgical Hx psychosis, BPH, HTN, dementia Subjective Information Pt seen eating lunch in his room at time of visit, easily irritable. Per notes, PO intake 100% x 3 meals on 03/05. Current Diet Order/ Nutrition Support mech soft chopped, PAULINA Pertinent Medications colace, seroquel Pertinent Labs no labs available Nutritional Hx/Data Height 1.78 m Height (Calculated Centimeters) 177.8 Current Weight (lbs) 81.647 kg Weight (Calculated Kilograms) 81.6 Weight (Calculated Grams) 19655.6 [place] Body Weight 166 % [place] Body Weight 108 Body Mass Index (BMI) 25.8 Weight Status Overweight GI Symptoms GI Symptoms None Last BM 03/15 Difficult in: None Skin Integrity/Comment: skin tear to right arm Current %PO Good (75-100%) Estimated Nutritional Goals Calories/Kcals/Kg 25-30 based on IBW 75kg Kcals Calculated 4451-5384 Protein g/k Protein Calculated 75 Fluid: ml 1875-2250ml (1ml/kcal) Nutritional Problem No current Nutrition Prob Problem N/A Malnutrition Alert Protein-Calorie Malnutrition N/A Is there a minimum of two criteria No selected? Query Text:Check all the applicable criteria. A minimum of two criteria are recommended for diagnosis of either severe or non-severe malnutrition. Intervention/Recommendation Comments 1. Continue with current diet as ordered. 2. Monitor PO intake, wt, labs and skin integrity 3. F/U as low risk in 7 days, 2/1 Expected Outcomes/Goals Expected Outcomes/Goals 1. PO intake to meet at least 75% of nutritional needs. 2. Wt stability, skin to remain intact.
[2017-03-19] MEDS: Multivitamin w/ Minerals Tab PO SCH (08:21)
--- NOTE | 2017-03-19 12:14 | Internal Medicine Prog Note ---
Internal Medicine Subjective - Subjective Patient seen and examined:: with staff, chart reviewed Patient is:: awake, verbal, interactive Patient Complaints of:: congestion, cough Per staff patient has:: no adverse event, eating well Internal Medicine Objective - Physical Exam Vitals and I&O: Vital Signs Temp 97.6 F 03/18/17 14:00 Pulse 75 03/19/17 08:22 Resp 20 03/18/17 14:00 BP 128/65 03/19/17 08:22 Pulse Ox 95 03/18/17 14:00 Intake & Output 03/18/17 03/19/17 03/19/17 18:59 06:59 18:59 Intake Total 900 Balance 900 Intake: Oral 900 Other: # Voids 3 # Bowel Movements 1 Active Medications: Current Medications Acetaminophen (Tylenol) 650 mg PO Q4HR PRN PRN Reason: PAIN Stop: 05/10/17 22:10 Last Admin: 03/12/17 17:09 Dose: 650 mg Amlodipine Besylate (Norvasc) 10 mg PO DAILY JAJA Stop: 05/11/17 08:59 Last Admin: 03/19/17 08:22 Dose: 10 mg Divalproex Sodium (Depakote Dr) 250 mg PO BID JAJA PRN Reason: Protocol Stop: 05/15/17 08:59 Last Admin: 03/19/17 08:21 Dose: 250 mg Docusate Sodium (Colace) 100 mg PO BID PRN PRN Reason: Constipation Stop: 05/10/17 22:10 Last Admin: 03/18/17 17:17 Dose: 100 mg Donepezil HCl (Aricept) 5 mg PO HS JAJA Stop: 05/11/17 20:59 Last Admin: 03/18/17 20:27 Dose: 5 mg Guaifenesin (Robitussin) 200 mg PO Q4H PRN PRN Reason: Cough or Congestion Stop: 05/12/17 13:43 Last Admin: 03/15/17 10:25 Dose: 200 mg Hydrochlorothiazide (Hctz) 25 mg PO DAILY JAJA Stop: 05/11/17 08:59 Last Admin: 03/19/17 08:21 Dose: 25 mg Lorazepam (Ativan) 0.5 mg PO Q4HR PRN; Protocol PRN Reason: Anxiety Stop: 04/10/17 22:08 Last Admin: 03/16/17 21:08 Dose: 0.5 mg Magnesium Hydroxide (Milk Of Magnesia) 30 ml PO DAILY PRN PRN Reason: Constipation Stop: 05/10/17 22:10 Quetiapine Fumarate (Seroquel) 100 mg PO BID JAJA PRN Reason: Protocol Stop: 05/14/17 08:59 Last Admin: 03/19/17 08:21 Dose: 100 mg Tamsulosin HCl (Flomax) 0.4 mg PO HS JAJA Stop: 05/11/17 20:59 Last Admin: 03/18/17 20:27 Dose: 0.4 mg Zolpidem Tartrate (Ambien) 5 mg PO HS PRN PRN Reason: Insomnia Stop: 05/10/17 22:17 Last Admin: 03/17/17 20:35 Dose: 5 mg General: alert, disheveled HEENT: NC/AT, PERRLA, EOMI Neck: Supple, No JVD Lungs: congested Cardiovascular: RRR, Normal S1, Normal S2 Abdomen: soft, non-tender, tender Extremities: excoriation, ecchymosis Neurological: no change, alert, disorganized Internal Medicine Assmt/Plan - Assessment Assessment: - Assessment Assessment: htn psychosis dementia bph cough - Plan Plan: cont on bp meds will add robitussin cpm tram rn Nutritional Asmnt/Malnutr-PDOC - Dietary Evaluation Malnutrition Findings (Please click <Entered> for more info): Nutritional Asmnt/Malnutrition Start: 03/16/17 14: 18 Text: Status: Complete Freq: Document 03/16/17 14:18 JORDON (Rec: 03/16/17 14:[email or web address] Nutritional Asmnt/Malnutrition Patient General Information Nutritional Screening Moderate Risk Diagnosis psychosis Pertinent Medical Hx/Surgical Hx psychosis, BPH, HTN, dementia Subjective Information Pt seen eating lunch in his room at time of visit, easily irritable. Per notes, PO intake 100% x 3 meals on 03/05. Current Diet Order/ Nutrition Support mech soft chopped, PAULINA Pertinent Medications colace, seroquel Pertinent Labs no labs available Nutritional Hx/Data Height 1.78 m Height (Calculated Centimeters) 177.8 Current Weight (lbs) 81.647 kg Weight (Calculated Kilograms) 81.6 Weight (Calculated Grams) 83034.6 [place] Body Weight 166 % [place] Body Weight 108 Body Mass Index (BMI) 25.8 Weight Status Overweight GI Symptoms GI Symptoms None Last BM 03/15 Difficult in: None Skin Integrity/Comment: skin tear to right arm Current %PO Good (75-100%) Estimated Nutritional Goals Calories/Kcals/Kg 25-30 based on IBW 75kg Kcals Calculated 8648-5523 Protein g/k Protein Calculated 75 Fluid: ml 1875-2250ml (1ml/kcal) Nutritional Problem No current Nutrition Prob Problem N/A Malnutrition Alert Protein-Calorie Malnutrition N/A Is there a minimum of two criteria No selected? Query Text:Check all the applicable criteria. A minimum of two criteria are recommended for diagnosis of either severe or non-severe malnutrition. Intervention/Recommendation Comments 1. Continue with current diet as ordered. 2. Monitor PO intake, wt, labs and skin integrity 3. F/U as low risk in 7 days, 2/1 Expected Outcomes/Goals Expected Outcomes/Goals 1. PO intake to meet at least 75% of nutritional needs. 2. Wt stability, skin to remain intact.
--- NOTE | 2017-03-19 19:17 | Progress Notes ---
DATE: 03/18/2017 CHIEF COMPLAINT: I saw him fine. SUBJECTIVE: The patient was seen, discussed with staff, still with some anger outburst. The patient keeping to himself; however, he is taking his medication. Sleep is fair. Appetite is fair. MENTAL STATUS EXAMINATION: The patient is still guarded, paranoid. Affect dysphoric. The patient's speech is minimal. Insight is limited. ASSESSMENT: The patient continues to have some anger outburst. PLAN: We will continue medication management. Continue hospitalization. The patient is receiving Depakote 250 mg p.o. b.i.d. and he is also on Seroquel 100 mg p.o. b.i.d. Check Depakote level in 1-2 days. The patient is also receiving Aricept 5 mg daily for poor memory. JOB# [id number]
--- NOTE | 2017-03-19 20:32 | Progress Notes ---
DATE: 03/19/2017 SUBJECTIVE: Staff was spoken to. The patient is interviewed. Mood is noted to be less irritable. Affect is appropriate. The patient's insight and judgment noted to be improving. The patient has been able to verbalize the concerns. The patient, however, has been still responding to the internal stimuli, but no command hallucinations are noted at this time. The patient is currently on Depakote and Seroquel, has been able to tolerate the medication. ASSESSMENT: The patient is still psychotic. PLAN: To continue the patient with the supportive therapy and followup. JOB# [id number]
[2017-03-20] MEDS ORDERED: Haloperidol Lactate 5 mg/mL 1mL Vial IM SCH (00:42)
[2017-03-20] MEDS: Multivitamin w/ Minerals Tab PO SCH (09:22)
--- NOTE | 2017-03-20 13:36 | Internal Medicine Prog Note ---
Internal Medicine Subjective - Subjective Service Date: 03/20/17 Patient is:: awake, verbal, interactive Patient Complaints of:: congestion, cough Per staff patient has:: no adverse event, eating well Internal Medicine Objective - Physical Exam Vitals and I&O: Vital Signs Temp 0 F 03/20/17 05:49 Pulse 86 03/20/17 09:30 Resp 18 03/19/17 14:00 BP 127/104 03/20/17 09:31 Pulse Ox 97 03/19/17 14:00 Intake & Output 03/19/17 03/20/17 03/20/17 18:59 06:59 18:59 Intake Total 1800 60 Balance 1800 60 Intake: Oral 1800 60 Other: # Voids 4 3 # Bowel Movements 1 0 Active Medications: Current Medications Acetaminophen (Tylenol) 650 mg PO Q4HR PRN PRN Reason: PAIN Stop: 05/10/17 22:10 Last Admin: 03/12/17 17:09 Dose: 650 mg Amlodipine Besylate (Norvasc) 10 mg PO DAILY [facility] Stop: 05/11/17 08:59 Last Admin: 03/20/17 09:30 Dose: 10 mg Divalproex Sodium (Depakote Dr) 500 mg PO BID JAJA PRN Reason: Protocol Stop: 05/15/17 08:59 Last Admin: 03/20/17 09:22 Dose: 500 mg Docusate Sodium (Colace) 100 mg PO BID PRN PRN Reason: Constipation Stop: 05/10/17 22:10 Last Admin: 03/18/17 17:17 Dose: 100 mg Donepezil HCl (Aricept) 5 mg PO HS [facility] Stop: 05/11/17 20:59 Last Admin: 03/19/17 21:30 Dose: 5 mg Guaifenesin (Robitussin) 200 mg PO Q4H PRN PRN Reason: Cough or Congestion Stop: 05/12/17 13:43 Last Admin: 03/15/17 10:25 Dose: 200 mg Hydrochlorothiazide (Hctz) 25 mg PO DAILY JAJA Stop: 05/11/17 08:59 Last Admin: 03/20/17 09:31 Dose: 25 mg Lorazepam (Ativan) 0.5 mg PO Q4HR PRN; Protocol PRN Reason: Anxiety Stop: 04/10/17 22:08 Last Admin: 03/19/17 22:11 Dose: 0.5 mg Magnesium Hydroxide (Milk Of Magnesia) 30 ml PO DAILY PRN PRN Reason: Constipation Stop: 05/10/17 22:10 Quetiapine Fumarate (Seroquel) 100 mg PO BID JAJA PRN Reason: Protocol Stop: 05/14/17 08:59 Last Admin: 03/20/17 09:21 Dose: 100 mg Tamsulosin HCl (Flomax) 0.4 mg PO HS JAJA Stop: 05/11/17 20:59 Last Admin: 03/19/17 21:30 Dose: 0.4 mg Zolpidem Tartrate (Ambien) 5 mg PO HS PRN PRN Reason: Insomnia Stop: 05/10/17 22:17 Last Admin: 03/19/17 21:30 Dose: 5 mg General: alert, disheveled HEENT: NC/AT, PERRLA, EOMI Neck: Supple, No JVD Lungs: congested Cardiovascular: RRR, Normal S1, Normal S2 Abdomen: soft, non-tender, tender Extremities: excoriation, ecchymosis Neurological: no change, alert, disorganized Internal Medicine Assmt/Plan - Assessment Assessment: htn psychosis dementia bph - Plan Plan: monitor bp continue current plan of care Nutritional Asmnt/Malnutr-PDOC - Dietary Evaluation Malnutrition Findings (Please click <Entered> for more info): Nutritional Asmnt/Malnutrition Start: 03/16/17 14: 18 Text: Status: Complete Freq: Document 03/16/17 14:18 HEN (Rec: 03/16/17 14:26 [facility] [email or web address]) Nutritional Asmnt/Malnutrition Patient General Information Nutritional Screening Moderate Risk Diagnosis psychosis Pertinent Medical Hx/Surgical Hx psychosis, BPH, HTN, dementia Subjective Information Pt seen eating lunch in his room at time of visit, easily irritable. Per notes, PO intake 100% x 3 meals on 03/05. Current Diet Order/ Nutrition Support mech soft chopped, PAULINA Pertinent Medications colace, seroquel Pertinent Labs no labs available Nutritional Hx/Data Height 5 ft 10 in Height (Calculated Centimeters) 177.8 Current Weight (lbs) 180 lb Weight (Calculated Kilograms) 81.6 Weight (Calculated Grams) 70066.6 [place] Body Weight 166 % [place] Body Weight 108 Body Mass Index (BMI) 25.8 Weight Status Overweight GI Symptoms GI Symptoms None Last BM 03/15 Difficult in: None Skin Integrity/Comment: skin tear to right arm Current %PO Good (75-100%) Estimated Nutritional Goals Calories/Kcals/Kg 25-30 based on IBW 75kg Kcals Calculated 3205-1544 Protein g/k Protein Calculated 75 Fluid: ml 1875-2250ml (1ml/kcal) Nutritional Problem No current Nutrition Prob Problem N/A Malnutrition Alert Protein-Calorie Malnutrition N/A Is there a minimum of two criteria No selected? Query Text:Check all the applicable criteria. A minimum of two criteria are recommended for diagnosis of either severe or non-severe malnutrition. Intervention/Recommendation Comments 1. Continue with current diet as ordered. 2. Monitor PO intake, wt, labs and skin integrity 3. F/U as low risk in 7 days, 2/1 Expected Outcomes/Goals Expected Outcomes/Goals 1. PO intake to meet at least 75% of nutritional needs. 2. Wt stability, skin to remain intact.
--- NOTE | 2017-03-20 16:22 | Progress Notes ---
DATE: 03/19/2017 PSYCHIATRIC PROGRESS NOTE SUBJECTIVE: Staff was spoken to. The patient is interviewed. Mood is noted to be irritable. Affect is constricted. The patient is screaming, yelling, and nonstop talking. The patient has not been compliant with the medication. The patient has been placed on Depakote, which is going to be increased to 500 mg twice a day. The patient is also on Seroquel 100 mg. The patient is not able to calm down. The patient has to be given a dose of Ativan IM. ASSESSMENT: The patient is still psychotic and impulsive. PLAN: To continue the patient with the supportive therapy. I encourage the patient to verbalize the concerns rather than to act out. [facility]# [id number]
[2017-03-21] MEDS: Multivitamin w/ Minerals Tab PO SCH (08:07)
--- NOTE | 2017-03-21 15:41 | Internal Medicine Prog Note ---
Internal Medicine Subjective - Subjective Service Date: 03/21/17 Patient is:: awake, verbal, interactive Patient Complaints of:: congestion, cough Per staff patient has:: no adverse event, eating well Internal Medicine Objective - Physical Exam Vitals and I&O: Vital Signs Temp 97.4 F 03/21/17 06:03 Pulse 93 03/21/17 08:28 Resp 20 03/21/17 06:03 BP 133/90 03/21/17 08:28 Pulse Ox 94 03/21/17 06:03 Intake & Output 03/20/17 03/21/17 03/21/17 18:59 06:59 18:59 Intake Total 900 240 Balance 900 240 Intake: Oral 900 240 Other: # Voids 1 Active Medications: Current Medications Acetaminophen (Tylenol) 650 mg PO Q4HR PRN PRN Reason: PAIN Stop: 05/10/17 22:10 Last Admin: 03/21/17 06:20 Dose: 650 mg Amlodipine Besylate (Norvasc) 10 mg PO DAILY [facility] Stop: 05/11/17 08:59 Last Admin: 03/21/17 08:28 Dose: 10 mg Divalproex Sodium (Depakote Dr) 500 mg PO BID JAJA PRN Reason: Protocol Stop: 05/15/17 08:59 Last Admin: 03/21/17 08:07 Dose: 500 mg Docusate Sodium (Colace) 100 mg PO BID PRN PRN Reason: Constipation Stop: 05/10/17 22:10 Last Admin: 03/18/17 17:17 Dose: 100 mg Donepezil HCl (Aricept) 5 mg PO HS [facility] Stop: 05/11/17 20:59 Last Admin: 03/20/17 21:27 Dose: 5 mg Guaifenesin (Robitussin) 200 mg PO Q4H PRN PRN Reason: Cough or Congestion Stop: 05/12/17 13:43 Last Admin: 03/15/17 10:25 Dose: 200 mg Haloperidol (Haldol) 5 mg PO BID JAJA PRN Reason: Protocol Stop: 05/20/17 08:59 Hydrochlorothiazide (Hctz) 25 mg PO DAILY JAJA Stop: 05/11/17 08:59 Last Admin: 03/21/17 08:28 Dose: 25 mg Lorazepam (Ativan) 0.5 mg PO Q4HR PRN; Protocol PRN Reason: Anxiety Stop: 04/10/17 22:08 Last Admin: 03/21/17 10:16 Dose: 0.5 mg Magnesium Hydroxide (Milk Of Magnesia) 30 ml PO DAILY PRN PRN Reason: Constipation Stop: 05/10/17 22:10 Quetiapine Fumarate (Seroquel) 200 mg PO HS JAJA PRN Reason: Protocol Stop: 05/20/17 20:59 Tamsulosin HCl (Flomax) 0.4 mg PO HS JAJA Stop: 05/11/17 20:59 Last Admin: 03/20/17 21:27 Dose: 0.4 mg Zolpidem Tartrate (Ambien) 5 mg PO HS PRN PRN Reason: Insomnia Stop: 05/10/17 22:17 Last Admin: 03/19/17 21:30 Dose: 5 mg General: alert, disheveled HEENT: NC/AT, PERRLA, EOMI Neck: Supple, No JVD Lungs: congested Cardiovascular: RRR, Normal S1, Normal S2 Abdomen: soft, non-tender, tender Extremities: excoriation, ecchymosis Neurological: no change, alert, disorganized Internal Medicine Assmt/Plan - Assessment Assessment: htn psychosis dementia bph - Plan Plan: monitor bp continue current plan of care Nutritional Asmnt/Malnutr-PDOC - Dietary Evaluation Malnutrition Findings (Please click <Entered> for more info): Nutritional Asmnt/Malnutrition Start: 03/16/17 14: 18 Text: Status: Complete Freq: Document 03/16/17 14:18 LCHENG (Rec: 03/16/17 14:26 [facility] [email or web address]) Nutritional Asmnt/Malnutrition Patient General Information Nutritional Screening Moderate Risk Diagnosis psychosis Pertinent Medical Hx/Surgical Hx psychosis, BPH, HTN, dementia Subjective Information Pt seen eating lunch in his room at time of visit, easily irritable. Per notes, PO intake 100% x 3 meals on 03/05. Current Diet Order/ Nutrition Support mech soft chopped, PAULINA Pertinent Medications colace, seroquel Pertinent Labs no labs available Nutritional Hx/Data Height 5 ft 10 in Height (Calculated Centimeters) 177.8 Current Weight (lbs) 180 lb Weight (Calculated Kilograms) 81.6 Weight (Calculated Grams) 94423.6 [place] Body Weight 166 % [place] Body Weight 108 Body Mass Index (BMI) 25.8 Weight Status Overweight GI Symptoms GI Symptoms None Last BM 03/15 Difficult in: None Skin Integrity/Comment: skin tear to right arm Current %PO Good (75-100%) Estimated Nutritional Goals Calories/Kcals/Kg 25-30 based on IBW 75kg Kcals Calculated 9291-2369 Protein g/k Protein Calculated 75 Fluid: ml 1875-2250ml (1ml/kcal) Nutritional Problem No current Nutrition Prob Problem N/A Malnutrition Alert Protein-Calorie Malnutrition N/A Is there a minimum of two criteria No selected? Query Text:Check all the applicable criteria. A minimum of two criteria are recommended for diagnosis of either severe or non-severe malnutrition. Intervention/Recommendation Comments 1. Continue with current diet as ordered. 2. Monitor PO intake, wt, labs and skin integrity 3. F/U as low risk in 7 days, 2/1 Expected Outcomes/Goals Expected Outcomes/Goals 1. PO intake to meet at least 75% of nutritional needs. 2. Wt stability, skin to remain intact.
--- NOTE | 2017-03-21 15:54 | Progress Notes ---
DATE: 03/21/2017 SUBJECTIVE: Staff was spoken to. The patient is interviewed. Mood is noted to be irritable. Affect is constricted. Insight and judgment at this time are noted to be still impaired. Impulse control seems to be poor. The patient is screaming and yelling and it has been becoming very difficult to contain the patient. The patient has been actively responding to internal stimuli. The patient is currently on Depakote 500 mg twice a day and Seroquel 100 mg twice a day. Since he is not getting any better, it is decided to add the Haldol 5 mg twice a day along with it and continue the Depakote and follow the patient up with supportive therapy. Please also note that the patient is currently getting 100 mg b.i.d. of Seroquel, which is going to be made to 200 mg at bedtime and Haldol is going to be added twice a day and the patient is going to be followed up. The patient is not ready to be discharged to a lower level of care in view of his acute psychosis. JOB# [id number]
[2017-03-22] MEDS: Multivitamin w/ Minerals Tab PO SCH ×3 (08:30→08:36)
[2017-03-22] MEDS ORDERED: Lithium Citrate 300 mg/5 mL Soln UDC PO ONE (15:00)
--- NOTE | 2017-03-22 15:32 | Internal Medicine Prog Note ---
Internal Medicine Subjective - Subjective Service Date: 03/22/17 Patient is:: awake, verbal, interactive Patient Complaints of:: congestion, cough Per staff patient has:: no adverse event, eating well Internal Medicine Objective - Physical Exam Vitals and I&O: Vital Signs Temp 97.8 F 03/22/17 14:00 Pulse 70 03/22/17 14:00 Resp 20 03/22/17 14:00 BP 115/65 03/22/17 14:00 Pulse Ox 97 03/22/17 14:00 Intake & Output 03/21/17 03/22/17 03/22/17 18:59 06:59 18:59 Intake Total 1200 240 Balance 1200 240 Intake: Oral 1200 240 Other: # Voids 4 3 # Bowel Movements 0 0 Active Medications: Current Medications Acetaminophen (Tylenol) 650 mg PO Q4HR PRN PRN Reason: PAIN Stop: 05/10/17 22:10 Last Admin: 03/21/17 20:53 Dose: 650 mg Amlodipine Besylate (Norvasc) 10 mg PO DAILY [facility] Stop: 05/11/17 08:59 Last Admin: 03/22/17 08:30 Dose: Not Given Divalproex Sodium (Depakote Dr) 500 mg PO BID JAJA PRN Reason: Protocol Stop: 05/15/17 08:59 Last Admin: 03/22/17 08:35 Dose: 500 mg Docusate Sodium (Colace) 100 mg PO BID PRN PRN Reason: Constipation Stop: 05/10/17 22:10 Last Admin: 03/18/17 17:17 Dose: 100 mg Donepezil HCl (Aricept) 5 mg PO HS JAJA Stop: 05/11/17 20:59 Last Admin: 03/21/17 20:53 Dose: 5 mg Guaifenesin (Robitussin) 200 mg PO Q4H PRN PRN Reason: Cough or Congestion Stop: 05/12/17 13:43 Last Admin: 03/15/17 10:25 Dose: 200 mg Hydrochlorothiazide (Hctz) 25 mg PO DAILY JAJA Stop: 05/11/17 08:59 Last Admin: 03/22/17 08:29 Dose: Not Given [place] Citrate (Eskalith) 300 mg PO X1 ONE PRN Reason: Protocol Stop: 03/22/17 15:01 Lorazepam (Ativan) 0.5 mg PO Q4HR PRN; Protocol PRN Reason: Anxiety Stop: 04/10/17 22:08 Last Admin: 03/21/17 20:53 Dose: 0.5 mg Magnesium Hydroxide (Milk Of Magnesia) 30 ml PO DAILY PRN PRN Reason: Constipation Stop: 05/10/17 22:10 Quetiapine Fumarate (Seroquel) 200 mg PO HS JAJA PRN Reason: Protocol Stop: 05/20/17 20:59 Last Admin: 03/21/17 20:53 Dose: 200 mg Risperidone (Risperdal) 2 mg PO BID JAJA PRN Reason: Protocol Stop: 05/21/17 08:59 Last Admin: 03/22/17 15:17 Dose: Not Given Tamsulosin HCl (Flomax) 0.4 mg PO HS JAJA Stop: 05/11/17 20:59 Last Admin: 03/21/17 20:53 Dose: 0.4 mg Zolpidem Tartrate (Ambien) 5 mg PO HS PRN PRN Reason: Insomnia Stop: 05/10/17 22:17 Last Admin: 03/21/17 20:53 Dose: 5 mg General: alert, disheveled HEENT: NC/AT, PERRLA, EOMI Neck: Supple, No JVD Lungs: congested Cardiovascular: RRR, Normal S1, Normal S2 Abdomen: soft, non-tender, tender Extremities: excoriation, ecchymosis Neurological: no change, alert, disorganized Internal Medicine Assmt/Plan - Assessment Assessment: htn psychosis dementia bph - Plan Plan: monitor bp continue current plan of care Nutritional Asmnt/Malnutr-PDOC - Dietary Evaluation Malnutrition Findings (Please click <Entered> for more info): Nutritional Asmnt/Malnutrition Start: 03/16/17 14: 18 Text: Status: Complete Freq: Document 03/16/17 14:18 LCJORDONG (Rec: 03/16/17 14:26 [facility] [email or web address]) Nutritional Asmnt/Malnutrition Patient General Information Nutritional Screening Moderate Risk Diagnosis psychosis Pertinent Medical Hx/Surgical Hx psychosis, BPH, HTN, dementia Subjective Information Pt seen eating lunch in his room at time of visit, easily irritable. Per notes, PO intake 100% x 3 meals on 03/05. Current Diet Order/ Nutrition Support mech soft chopped, PAULINA Pertinent Medications colace, seroquel Pertinent Labs no labs available Nutritional Hx/Data Height 5 ft 10 in Height (Calculated Centimeters) 177.8 Current Weight (lbs) 180 lb Weight (Calculated Kilograms) 81.6 Weight (Calculated Grams) 73319.6 [place] Body Weight 166 % [place] Body Weight 108 Body Mass Index (BMI) 25.8 Weight Status Overweight GI Symptoms GI Symptoms None Last BM 03/15 Difficult in: None Skin Integrity/Comment: skin tear to right arm Current %PO Good (75-100%) Estimated Nutritional Goals Calories/Kcals/Kg 25-30 based on IBW 75kg Kcals Calculated 4961-2786 Protein g/k Protein Calculated 75 Fluid: ml 1875-2250ml (1ml/kcal) Nutritional Problem No current Nutrition Prob Problem N/A Malnutrition Alert Protein-Calorie Malnutrition N/A Is there a minimum of two criteria No selected? Query Text:Check all the applicable criteria. A minimum of two criteria are recommended for diagnosis of either severe or non-severe malnutrition. Intervention/Recommendation Comments 1. Continue with current diet as ordered. 2. Monitor PO intake, wt, labs and skin integrity 3. F/U as low risk in 7 days, 2/1 Expected Outcomes/Goals Expected Outcomes/Goals 1. PO intake to meet at least 75% of nutritional needs. 2. Wt stability, skin to remain intact.
[2017-03-22] MEDS ORDERED: Lithium Citrate 300 mg/5 mL Soln UDC PO SCH (17:00)
--- NOTE | 2017-03-23 03:34 | Progress Notes ---
DATE: 03/22/2017 Staff was spoken to. The patient is interviewed. Mood is irritable. Affect, the patient is constantly talking, and he is very hyperverbally intrusive. The patient has to be given a dose of medications at 4:00 in the morning again at a 7:30 in the morning. The patient needs to be redirected. Since the Haldol does not seem to be helping the patient, it was decided to change the Haldol to Risperdal and continue the Depakote and follow the patient up. ASSESSMENT: The patient is still impulsive and psychotic, not ready to be discharged to a lower level of care yet. JOB# [id number]
[2017-03-23] MEDS: Multivitamin w/ Minerals Tab PO SCH (08:42)
--- NOTE | 2017-03-23 13:21 | Internal Medicine Prog Note ---
Internal Medicine Subjective - Subjective Service Date: 03/23/17 Patient is:: awake, verbal, interactive Patient Complaints of:: congestion, cough Per staff patient has:: no adverse event, eating well Internal Medicine Objective - Physical Exam Vitals and I&O: Vital Signs Temp 97.8 F 03/22/17 14:00 Pulse 96 03/23/17 08:40 Resp 20 03/22/17 14:00 BP 149/106 03/23/17 08:41 Pulse Ox 97 03/22/17 14:00 Intake & Output 03/22/17 03/23/17 03/23/17 18:59 06:59 18:59 Intake Total 1000 120 Balance 1000 120 Intake: Oral 1000 120 Other: # Voids 4 3 # Bowel Movements 1 Stool Characteristics Soft Active Medications: Current Medications Acetaminophen (Tylenol) 650 mg PO Q4HR PRN PRN Reason: PAIN Stop: 05/10/17 22:10 Last Admin: 03/21/17 20:53 Dose: 650 mg Amlodipine Besylate (Norvasc) 10 mg PO DAILY [facility] Stop: 05/11/17 08:59 Last Admin: 03/23/17 08:40 Dose: 10 mg Divalproex Sodium (Depakote Dr) 500 mg PO BID JAJA PRN Reason: Protocol Stop: 05/15/17 08:59 Last Admin: 03/23/17 08:41 Dose: 500 mg Docusate Sodium (Colace) 100 mg PO BID PRN PRN Reason: Constipation Stop: 05/10/17 22:10 Last Admin: 03/18/17 17:17 Dose: 100 mg Donepezil HCl (Aricept) 5 mg PO HS [facility] Stop: 05/11/17 20:59 Last Admin: 03/22/17 21:04 Dose: Not Given Guaifenesin (Robitussin) 200 mg PO Q4H PRN PRN Reason: Cough or Congestion Stop: 05/12/17 13:43 Last Admin: 03/15/17 10:25 Dose: 200 mg Hydrochlorothiazide (Hctz) 25 mg PO DAILY [facility] Stop: 05/11/17 08:59 Last Admin: 03/23/17 08:41 Dose: 25 mg Lorazepam (Ativan) 0.5 mg PO Q4HR PRN; Protocol PRN Reason: Anxiety Stop: 04/10/17 22:08 Last Admin: 03/22/17 16:35 Dose: 0.5 mg Magnesium Hydroxide (Milk Of Magnesia) 30 ml PO DAILY PRN PRN Reason: Constipation Stop: 05/10/17 22:10 Risperidone (Risperdal) 2 mg PO BID JAJA PRN Reason: Protocol Stop: 05/21/17 08:59 Last Admin: 03/23/17 08:42 Dose: 2 mg Tamsulosin HCl (Flomax) 0.4 mg PO HS [facility] Stop: 05/11/17 20:59 Last Admin: 03/22/17 21:07 Dose: Not Given Zolpidem Tartrate (Ambien) 5 mg PO HS PRN PRN Reason: Insomnia Stop: 05/10/17 22:17 Last Admin: 03/21/17 20:53 Dose: 5 mg General: alert, disheveled HEENT: NC/AT, PERRLA, EOMI Neck: Supple, No JVD Lungs: congested Cardiovascular: RRR, Normal S1, Normal S2 Abdomen: soft, non-tender, tender Extremities: excoriation, ecchymosis Neurological: no change, alert, disorganized Internal Medicine Assmt/Plan - Assessment Assessment: htn psychosis dementia bph - Plan Plan: monitor bp continue current plan of care Nutritional Asmnt/Malnutr-PDOC - Dietary Evaluation Malnutrition Findings (Please click <Entered> for more info): Nutritional Asmnt/Malnutrition Start: 03/16/17 14: 18 Text: Status: Complete Freq: Document 03/16/17 14:18 LCHENG (Rec: 03/16/17 14:26 [facility] [email or web address]) Nutritional Asmnt/Malnutrition Patient General Information Nutritional Screening Moderate Risk Diagnosis psychosis Pertinent Medical Hx/Surgical Hx psychosis, BPH, HTN, dementia Subjective Information Pt seen eating lunch in his room at time of visit, easily irritable. Per notes, PO intake 100% x 3 meals on 03/05. Current Diet Order/ Nutrition Support mech soft chopped, PAULINA Pertinent Medications colace, seroquel Pertinent Labs no labs available Nutritional Hx/Data Height 5 ft 10 in Height (Calculated Centimeters) 177.8 Current Weight (lbs) 180 lb Weight (Calculated Kilograms) 81.6 Weight (Calculated Grams) 37561.6 [place] Body Weight 166 % [place] Body Weight 108 Body Mass Index (BMI) 25.8 Weight Status Overweight GI Symptoms GI Symptoms None Last BM 1/24 Difficult in: None Skin Integrity/Comment: skin tear to right arm Current %PO Good (75-100%) Estimated Nutritional Goals Calories/Kcals/Kg 25-30 based on IBW 75kg Kcals Calculated 5487-2265 Protein g/k Protein Calculated 75 Fluid: ml 1875-2250ml (1ml/kcal) Nutritional Problem No current Nutrition Prob Problem N/A Malnutrition Alert Protein-Calorie Malnutrition N/A Is there a minimum of two criteria No selected? Query Text:Check all the applicable criteria. A minimum of two criteria are recommended for diagnosis of either severe or non-severe malnutrition. Intervention/Recommendation Comments 1. Continue with current diet as ordered. 2. Monitor PO intake, wt, labs and skin integrity 3. F/U as low risk in 7 days, 2/1 Expected Outcomes/Goals Expected Outcomes/Goals 1. PO intake to meet at least 75% of nutritional needs. 2. Wt stability, skin to remain intact.
[2017-03-23] MEDS ORDERED: chlorproMAZINE 25 mg/mL 2mL Amp ONE (16:13)
[2017-03-23] MEDS ORDERED: chlorproMAZINE 25 mg/mL 2mL Amp IM STA (16:15)
--- NOTE | 2017-03-23 17:05 | Progress Notes ---
DATE: 03/23/2017 Staff was spoken to. The patient is interviewed. Mood is irritable. Affect is constricted. The patient is pacing most of the time, actively responding to internal stimuli, but the aggressive behavior seems to be major concern at this time. The patient is currently on 500 mg twice a day, the Depakote and the lithium carbonate 300 mg twice a day and the patient is also on Seroquel 200 mg at bedtime along with the Risperdal twice a day and since he is on 2 antidepressant medications, the Risperdal is going to be continued and the patient is going to be taken off of the Seroquel at this time and patient is going to be followed up with the supportive therapy. The patient is not ready to be discharged to a lower level of care yet because of his impulsivity and out of control behavior. JOB# [id number]
[2017-03-24] MEDS: Multivitamin w/ Minerals Tab PO SCH (08:04)
--- NOTE | 2017-03-24 15:19 | Internal Medicine Prog Note ---
Internal Medicine Subjective - Subjective Service Date: 03/24/17 Patient is:: awake, verbal, interactive Patient Complaints of:: congestion, cough Per staff patient has:: no adverse event, eating well Internal Medicine Objective - Physical Exam Vitals and I&O: Vital Signs Temp 97.7 F 03/23/17 20:54 Pulse 83 03/24/17 08:03 Resp 20 03/23/17 20:54 BP 143/93 03/24/17 08:04 Pulse Ox 97 03/23/17 20:54 Intake & Output 03/23/17 03/24/17 03/24/17 18:59 06:59 18:59 Intake Total 240 Balance 240 Intake: Oral 240 Other: # Voids 1 Stool Characteristics Formed Active Medications: Current Medications Acetaminophen (Tylenol) 650 mg PO Q4HR PRN PRN Reason: PAIN Stop: 05/10/17 22:10 Last Admin: 03/21/17 20:53 Dose: 650 mg Amlodipine Besylate (Norvasc) 10 mg PO DAILY [facility] Stop: 05/11/17 08:59 Last Admin: 03/24/17 08:03 Dose: 10 mg Divalproex Sodium (Depakote Dr) 500 mg PO BID JAJA PRN Reason: Protocol Stop: 05/15/17 08:59 Last Admin: 03/24/17 08:04 Dose: 500 mg Docusate Sodium (Colace) 100 mg PO BID PRN PRN Reason: Constipation Stop: 05/10/17 22:10 Last Admin: 03/24/17 08:03 Dose: 100 mg Donepezil HCl (Aricept) 5 mg PO HS JAJA Stop: 05/11/17 20:59 Last Admin: 03/23/17 22:09 Dose: 5 mg Guaifenesin (Robitussin) 200 mg PO Q4H PRN PRN Reason: Cough or Congestion Stop: 05/12/17 13:43 Last Admin: 03/15/17 10:25 Dose: 200 mg Hydrochlorothiazide (Hctz) 25 mg PO DAILY JAJA Stop: 05/11/17 08:59 Last Admin: 03/24/17 08:04 Dose: 25 mg Lorazepam (Ativan) 0.5 mg PO Q4HR PRN; Protocol PRN Reason: Anxiety Stop: 04/10/17 22:08 Last Admin: 03/24/17 08:08 Dose: 0.5 mg Magnesium Hydroxide (Milk Of Magnesia) 30 ml PO DAILY PRN PRN Reason: Constipation Stop: 05/10/17 22:10 Risperidone (Risperdal) 2 mg PO BID JAJA PRN Reason: Protocol Stop: 05/21/17 08:59 Last Admin: 03/24/17 08:03 Dose: 2 mg Tamsulosin HCl (Flomax) 0.4 mg PO HS JAJA Stop: 05/11/17 20:59 Last Admin: 03/23/17 22:10 Dose: 0.4 mg Zolpidem Tartrate (Ambien) 5 mg PO HS PRN PRN Reason: Insomnia Stop: 05/10/17 22:17 Last Admin: 03/21/17 20:53 Dose: 5 mg General: alert, disheveled HEENT: NC/AT, PERRLA, EOMI Neck: Supple, No JVD Lungs: congested Cardiovascular: RRR, Normal S1, Normal S2 Abdomen: soft, non-tender, tender Extremities: excoriation, ecchymosis Neurological: no change, alert, disorganized Internal Medicine Assmt/Plan - Assessment Assessment: htn psychosis dementia bph - Plan Plan: monitor bp continue current plan of care Nutritional Asmnt/Malnutr-PDOC - Dietary Evaluation Malnutrition Findings (Please click <Entered> for more info): Nutritional Asmnt/Malnutrition Start: 03/16/17 14: 18 Text: Status: Complete Freq: Document 03/16/17 14:18 HEN (Rec: 03/16/17 14:26 HEN [email or web address]) Nutritional Asmnt/Malnutrition Patient General Information Nutritional Screening Moderate Risk Diagnosis psychosis Pertinent Medical Hx/Surgical Hx psychosis, BPH, HTN, dementia Subjective Information Pt seen eating lunch in his room at time of visit, easily irritable. Per notes, PO intake 100% x 3 meals on 03/05. Current Diet Order/ Nutrition Support mech soft chopped, PAULINA Pertinent Medications colace, seroquel Pertinent Labs no labs available Nutritional Hx/Data Height 5 ft 10 in Height (Calculated Centimeters) 177.8 Current Weight (lbs) 180 lb Weight (Calculated Kilograms) 81.6 Weight (Calculated Grams) 91181.6 [place] Body Weight 166 % [place] Body Weight 108 Body Mass Index (BMI) 25.8 Weight Status Overweight GI Symptoms GI Symptoms None Last BM 03/15 Difficult in: None Skin Integrity/Comment: skin tear to right arm Current %PO Good (75-100%) Estimated Nutritional Goals Calories/Kcals/Kg 25-30 based on IBW 75kg Kcals Calculated 9109-0867 Protein g/k Protein Calculated 75 Fluid: ml 1875-2250ml (1ml/kcal) Nutritional Problem No current Nutrition Prob Problem N/A Malnutrition Alert Protein-Calorie Malnutrition N/A Is there a minimum of two criteria No selected? Query Text:Check all the applicable criteria. A minimum of two criteria are recommended for diagnosis of either severe or non-severe malnutrition. Intervention/Recommendation Comments 1. Continue with current diet as ordered. 2. Monitor PO intake, wt, labs and skin integrity 3. F/U as low risk in 7 days, 2/1 Expected Outcomes/Goals Expected Outcomes/Goals 1. PO intake to meet at least 75% of nutritional needs. 2. Wt stability, skin to remain intact.
--- NOTE | 2017-03-25 00:19 | Progress Notes ---
DATE: 03/24/2017 SUBJECTIVE: Staff was spoken to. The patient is interviewed. Mood is irritable. Affect is constricted. Insight is noted to be still impaired. The patient is currently on Risperdal and valproic acid. He has been able to tolerate the medications, but the patient has to be redirected constantly. No side effects to the medications are noted. ASSESSMENT: The patient is still psychotic and impulsive. PLAN: To continue the patient with supportive therapy and follow up. JOB# [id number]
[2017-03-25] MEDS: Triple Antibiotic 0.94 gm Pkt TP SCH (08:54)
[2017-03-25] MEDS: Multivitamin w/ Minerals Tab PO SCH (08:57)
--- NOTE | 2017-03-26 00:42 | Progress Notes ---
DATE: 03/25/2017 SUBJECTIVE: Staff are spoken to. Patient is interviewed. Mood is irritable. Affect is constricted. Coping skills are noted to be still poor. Sleep and appetite are also noted to be improving. The patient is less aggressive today compared to the other days, insight and judgment to be still impaired. No side effects to the medications are noted. The patient has been given a dose of Ativan that helped him to sleep. ASSESSMENT: The patient is still impulsive. Plan to continue and paranoid. PLAN: To continue the patient with the supportive therapy and place the patient to verbalize the concerns rather than to act out. Please note that the patient has been currently on clonazepam 0.5, and 500 mg of the Depakote, risperidone has been given 2 mg twice a day and has been able to tolerate. JOB# [id number]
[2017-03-26] MEDS: Triple Antibiotic 0.94 gm Pkt TP SCH (08:40)
[2017-03-26] MEDS: Multivitamin w/ Minerals Tab PO SCH (08:41)
--- NOTE | 2017-03-26 15:47 | Internal Medicine Prog Note ---
Internal Medicine Subjective - Subjective Service Date: 03/26/17 Patient is:: awake, verbal, interactive Patient Complaints of:: congestion, cough Per staff patient has:: no adverse event, eating well Internal Medicine Objective - Physical Exam Vitals and I&O: Vital Signs Temp 98.1 F 03/26/17 15:05 Pulse 88 03/26/17 15:05 Resp 20 03/26/17 15:05 BP 114/75 03/26/17 15:05 Pulse Ox 95 03/26/17 15:05 Intake & Output 03/25/17 03/26/17 03/26/17 18:59 06:59 18:59 Intake Total 1000 480 Balance 1000 480 Intake: Oral 1000 480 Other: # Voids 4 2 # Bowel Movements 1 Active Medications: Current Medications Acetaminophen (Tylenol) 650 mg PO Q4HR PRN PRN Reason: PAIN Stop: 05/10/17 22:10 Last Admin: 03/21/17 20:53 Dose: 650 mg Amlodipine Besylate (Norvasc) 10 mg PO DAILY [facility]JA Stop: 05/11/17 08:59 Last Admin: 03/26/17 08:41 Dose: 10 mg Clonazepam (Klonopin) 0.5 mg PO BID JAJA PRN Reason: Protocol Stop: 05/24/17 16:59 Last Admin: 03/26/17 08:41 Dose: 0.5 mg Divalproex Sodium (Depakote Dr) 500 mg PO TID JAJA PRN Reason: Protocol Stop: 05/25/17 20:59 Docusate Sodium (Colace) 100 mg PO BID PRN PRN Reason: Constipation Stop: 05/10/17 22:10 Last Admin: 03/24/17 08:03 Dose: 100 mg Donepezil HCl (Aricept) 5 mg PO HS JAJA Stop: 05/11/17 20:59 Last Admin: 03/25/17 21:54 Dose: 5 mg Guaifenesin (Robitussin) 200 mg PO Q4H PRN PRN Reason: Cough or Congestion Stop: 05/12/17 13:43 Last Admin: 03/15/17 10:25 Dose: 200 mg Hydrochlorothiazide (Hctz) 25 mg PO DAILY [facility]JA Stop: 05/11/17 08:59 Last Admin: 03/26/17 08:40 Dose: 25 mg Lorazepam (Ativan) 0.5 mg PO Q4HR PRN; Protocol PRN Reason: Anxiety Stop: 04/10/17 22:08 Last Admin: 03/25/17 13:56 Dose: 0.5 mg Magnesium Hydroxide (Milk Of Magnesia) 30 ml PO DAILY PRN PRN Reason: Constipation Stop: 05/10/17 22:10 Neomycin/Polymyxin/Bacitracin (Triple Antibiotic Pkt) 1 pkt TP DAILY JAJA Stop: 05/24/17 08:59 Last Admin: 03/26/17 08:40 Dose: 1 pkt Risperidone (Risperdal) 3 mg PO BID JAJA PRN Reason: Protocol Stop: 05/21/17 08:59 Tamsulosin HCl (Flomax) 0.4 mg PO HS JAJA Stop: 05/11/17 20:59 Last Admin: 03/25/17 21:54 Dose: 0.4 mg Zolpidem Tartrate (Ambien) 5 mg PO HS PRN PRN Reason: Insomnia Stop: 05/10/17 22:17 Last Admin: 03/25/17 21:54 Dose: 5 mg General: alert, disheveled HEENT: NC/AT, PERRLA, EOMI Neck: Supple, No JVD Lungs: congested Cardiovascular: RRR, Normal S1, Normal S2 Abdomen: soft, non-tender, tender Extremities: excoriation, ecchymosis Neurological: no change, alert, disorganized Internal Medicine Assmt/Plan - Assessment Assessment: htn psychosis dementia bph - Plan Plan: monitor bp continue current plan of care Nutritional Asmnt/Malnutr-PDOC - Dietary Evaluation Malnutrition Findings (Please click <Entered> for more info): Nutritional Asmnt/Malnutrition Start: 03/16/17 14: 18 Text: Status: Complete Freq: Document 03/16/17 14:18 JORDON (Rec: 03/16/17 14:26 HEN [email or web address]) Nutritional Asmnt/Malnutrition Patient General Information Nutritional Screening Moderate Risk Diagnosis psychosis Pertinent Medical Hx/Surgical Hx psychosis, BPH, HTN, dementia Subjective Information Pt seen eating lunch in his room at time of visit, easily irritable. Per notes, PO intake 100% x 3 meals on 03/05. Current Diet Order/ Nutrition Support mech soft chopped, PAULINA Pertinent Medications colace, seroquel Pertinent Labs no labs available Nutritional Hx/Data Height 5 ft 10 in Height (Calculated Centimeters) 177.8 Current Weight (lbs) 180 lb Weight (Calculated Kilograms) 81.6 Weight (Calculated Grams) 57426.6 [place] Body Weight 166 % [place] Body Weight 108 Body Mass Index (BMI) 25.8 Weight Status Overweight GI Symptoms GI Symptoms None Last BM 03/15 Difficult in: None Skin Integrity/Comment: skin tear to right arm Current %PO Good (75-100%) Estimated Nutritional Goals Calories/Kcals/Kg 25-30 based on IBW 75kg Kcals Calculated 2669-3812 Protein g/k Protein Calculated 75 Fluid: ml 1875-2250ml (1ml/kcal) Nutritional Problem No current Nutrition Prob Problem N/A Malnutrition Alert Protein-Calorie Malnutrition N/A Is there a minimum of two criteria No selected? Query Text:Check all the applicable criteria. A minimum of two criteria are recommended for diagnosis of either severe or non-severe malnutrition. Intervention/Recommendation Comments 1. Continue with current diet as ordered. 2. Monitor PO intake, wt, labs and skin integrity 3. F/U as low risk in 7 days, 2/1 Expected Outcomes/Goals Expected Outcomes/Goals 1. PO intake to meet at least 75% of nutritional needs. 2. Wt stability, skin to remain intact.
--- NOTE | 2017-03-26 23:28 | Progress Notes ---
DATE: 03/26/2017 SUBJECTIVE: Staff was spoken to. The patient is interviewed. Mood is noted to be irritable. Affect is constricted. The patient's family has been spoken to and they are worried about the patient's condition and medications have been clearly explained. The patient is currently on Risperdal 2 mg twice a day. The patient is also on divalproex acid 500 mg twice a day. The patient has been able to tolerate the medications. No side effects to the medications are noted. The patient has been placed on the clonazepam 0.5 mg twice a day. The patient's aggressive behavior seems to be coming down. No side effects to the medications are noted. ASSESSMENT: The patient is still having the mood swings. PLAN: To continue the patient with the supportive therapy and followup. JOB# [id number]
[2017-03-27] MEDS: Multivitamin w/ Minerals Tab PO SCH (08:25)
[2017-03-27] MEDS: Triple Antibiotic 0.94 gm Pkt TP SCH (08:26)
--- NOTE | 2017-03-27 13:15 | Internal Medicine Prog Note ---
Internal Medicine Subjective - Subjective Service Date: 03/27/17 Patient is:: awake, verbal, interactive Patient Complaints of:: congestion, cough Per staff patient has:: no adverse event, eating well Internal Medicine Objective - Results Recent Labs: Laboratory Last Values Valproic Acid 61.8 ug/mL (50.0-100.0) 03/27/17 07:20 - Physical Exam Vitals and I&O: Vital Signs Temp 97.9 F 03/26/17 20:46 Pulse 77 03/27/17 08:24 Resp 19 03/26/17 20:46 BP 144/81 03/27/17 08:25 Pulse Ox 96 03/26/17 20:46 Intake & Output 03/26/17 03/27/17 03/27/17 18:59 06:59 18:59 Intake Total 1000 480 Balance 1000 480 Intake: Oral 1000 480 Other: # Voids 4 1 # Bowel Movements 1 Active Medications: Current Medications Acetaminophen (Tylenol) 650 mg PO Q4HR PRN PRN Reason: PAIN Stop: 05/10/17 22:10 Last Admin: 03/21/17 20:53 Dose: 650 mg Amlodipine Besylate (Norvasc) 10 mg PO DAILY [facility] Stop: 05/11/17 08:59 Last Admin: 03/27/17 08:24 Dose: 10 mg Clonazepam (Klonopin) 0.5 mg PO BID [facility] PRN Reason: Protocol Stop: 05/24/17 16:59 Last Admin: 03/27/17 08:24 Dose: 0.5 mg Divalproex Sodium (Depakote Dr) 500 mg PO TID JAJA PRN Reason: Protocol Stop: 05/25/17 20:59 Last Admin: 03/27/17 08:25 Dose: 500 mg Docusate Sodium (Colace) 100 mg PO BID PRN PRN Reason: Constipation Stop: 05/10/17 22:10 Last Admin: 03/24/17 08:03 Dose: 100 mg Donepezil HCl (Aricept) 5 mg PO HS [facility] Stop: 05/11/17 20:59 Last Admin: 03/26/17 20:50 Dose: 5 mg Guaifenesin (Robitussin) 200 mg PO Q4H PRN PRN Reason: Cough or Congestion Stop: 05/12/17 13:43 Last Admin: 03/15/17 10:25 Dose: 200 mg Hydrochlorothiazide (Hctz) 25 mg PO DAILY JAJA Stop: 05/11/17 08:59 Last Admin: 03/27/17 08:25 Dose: 25 mg Lorazepam (Ativan) 0.5 mg PO Q4HR PRN; Protocol PRN Reason: Anxiety Stop: 04/10/17 22:08 Last Admin: 03/26/17 20:52 Dose: 0.5 mg Magnesium Hydroxide (Milk Of Magnesia) 30 ml PO DAILY PRN PRN Reason: Constipation Stop: 05/10/17 22:10 Neomycin/Polymyxin/Bacitracin (Triple Antibiotic Pkt) 1 pkt TP DAILY JAJA Stop: 05/24/17 08:59 Last Admin: 03/27/17 08:26 Dose: 1 pkt Risperidone (Risperdal) 3 mg PO BID JAJA PRN Reason: Protocol Stop: 05/21/17 08:59 Last Admin: 03/27/17 08:25 Dose: 3 mg Tamsulosin HCl (Flomax) 0.4 mg PO HS JAJA Stop: 05/11/17 20:59 Last Admin: 03/26/17 20:51 Dose: 0.4 mg Zolpidem Tartrate (Ambien) 5 mg PO HS PRN PRN Reason: Insomnia Stop: 05/10/17 22:17 Last Admin: 03/26/17 20:53 Dose: 5 mg General: alert, disheveled HEENT: NC/AT, PERRLA, EOMI Neck: Supple, No JVD Lungs: congested Cardiovascular: RRR, Normal S1, Normal S2 Abdomen: soft, non-tender, tender Extremities: excoriation, ecchymosis Neurological: no change, alert, disorganized Internal Medicine Assmt/Plan - Assessment Assessment: htn psychosis dementia bph - Plan Plan: monitor bp continue current plan of care Nutritional Asmnt/Malnutr-PDOC - Dietary Evaluation Malnutrition Findings (Please click <Entered> for more info): Nutritional Asmnt/Malnutrition Start: 03/16/17 14: 18 Text: Status: Complete Freq: Document 03/16/17 14:18 [facility] (Rec: 03/16/17 14:26 [facility] [email or web address]) Nutritional Asmnt/Malnutrition Patient General Information Nutritional Screening Moderate Risk Diagnosis psychosis Pertinent Medical Hx/Surgical Hx psychosis, BPH, HTN, dementia Subjective Information Pt seen eating lunch in his room at time of visit, easily irritable. Per notes, PO intake 100% x 3 meals on 03/05. Current Diet Order/ Nutrition Support mech soft chopped, PAULINA Pertinent Medications colace, seroquel Pertinent Labs no labs available Nutritional Hx/Data Height 5 ft 10 in Height (Calculated Centimeters) 177.8 Current Weight (lbs) 180 lb Weight (Calculated Kilograms) 81.6 Weight (Calculated Grams) 83652.6 [place] Body Weight 166 % [place] Body Weight 108 Body Mass Index (BMI) 25.8 Weight Status Overweight GI Symptoms GI Symptoms None Last BM 03/15 Difficult in: None Skin Integrity/Comment: skin tear to right arm Current %PO Good (75-100%) Estimated Nutritional Goals Calories/Kcals/Kg 25-30 based on IBW 75kg Kcals Calculated 5498-6461 Protein g/k Protein Calculated 75 Fluid: ml 1875-2250ml (1ml/kcal) Nutritional Problem No current Nutrition Prob Problem N/A Malnutrition Alert Protein-Calorie Malnutrition N/A Is there a minimum of two criteria No selected? Query Text:Check all the applicable criteria. A minimum of two criteria are recommended for diagnosis of either severe or non-severe malnutrition. Intervention/Recommendation Comments 1. Continue with current diet as ordered. 2. Monitor PO intake, wt, labs and skin integrity 3. F/U as low risk in 7 days, 2/1 Expected Outcomes/Goals Expected Outcomes/Goals 1. PO intake to meet at least 75% of nutritional needs. 2. Wt stability, skin to remain intact.
--- NOTE | 2017-03-28 02:30 | Progress Notes ---
DATE: 03/27/2017 PSYCHIATRIC PROGRESS NOTE SUBJECTIVE: Staff was spoken to. The patient is interviewed. Mood is noted to be less irritable. Affect is appropriate. Coping skills are noted to be still poor. The patient has paranoid delusions, and is responding to the internal stimuli. No side effects except for a slight drooling of saliva. The patient has been able to tolerate the medications. No major behavioral problems are noted today. ASSESSMENT: The patient's psychosis is resolving. PLAN: To continue the patient with the supportive therapy and "given extra dose of Benadryl because of the drooling of saliva and continue the current medications and followup. JOB# [id number]
[2017-03-28] MEDS: Triple Antibiotic 0.94 gm Pkt TP SCH (09:39)
[2017-03-28] MEDS: Multivitamin w/ Minerals Tab PO SCH (09:39)
--- NOTE | 2017-03-28 13:02 | Internal Medicine Prog Note ---
Internal Medicine Subjective - Subjective Service Date: 03/28/17 Patient is:: awake, verbal, interactive Patient Complaints of:: congestion, cough Per staff patient has:: no adverse event, eating well Internal Medicine Objective - Results Recent Labs: Laboratory Last Values Valproic Acid 61.8 ug/mL (50.0-100.0) 03/27/17 07:20 - Physical Exam Vitals and I&O: Vital Signs Temp 98.7 F 03/28/17 05:42 Pulse 78 03/28/17 09:40 Resp 20 03/28/17 05:42 BP 148/99 03/28/17 09:48 Pulse Ox 93 03/28/17 05:42 Intake & Output 03/27/17 03/28/17 03/28/17 18:59 06:59 18:59 Intake Total 1000 730 Balance 1000 730 Intake: Oral 1000 730 Other: # Voids 4 3 # Bowel Movements 1 0 Active Medications: Current Medications Acetaminophen (Tylenol) 650 mg PO Q4HR PRN PRN Reason: PAIN Stop: 05/10/17 22:10 Last Admin: 03/21/17 20:53 Dose: 650 mg Amlodipine Besylate (Norvasc) 10 mg PO DAILY [facility] Stop: 05/11/17 08:59 Last Admin: 03/28/17 09:40 Dose: 10 mg Clonazepam (Klonopin) 0.5 mg PO BID JAJA PRN Reason: Protocol Stop: 05/24/17 16:59 Last Admin: 03/28/17 09:37 Dose: 0.5 mg Divalproex Sodium (Depakote Dr) 500 mg PO TID JAJA PRN Reason: Protocol Stop: 05/25/17 20:59 Last Admin: 03/28/17 09:39 Dose: 500 mg Docusate Sodium (Colace) 100 mg PO BID PRN PRN Reason: Constipation Stop: 05/10/17 22:10 Last Admin: 03/24/17 08:03 Dose: 100 mg Donepezil HCl (Aricept) 5 mg PO HS [facility] Stop: 05/11/17 20:59 Last Admin: 03/27/17 20:36 Dose: Not Given Guaifenesin (Robitussin) 200 mg PO Q4H PRN PRN Reason: Cough or Congestion Stop: 05/12/17 13:43 Last Admin: 03/15/17 10:25 Dose: 200 mg Hydrochlorothiazide (Hctz) 25 mg PO DAILY JAJA Stop: 05/11/17 08:59 Last Admin: 03/28/17 09:48 Dose: 25 mg Lorazepam (Ativan) 0.5 mg PO Q4HR PRN; Protocol PRN Reason: Anxiety Stop: 04/10/17 22:08 Last Admin: 03/26/17 20:52 Dose: 0.5 mg Magnesium Hydroxide (Milk Of Magnesia) 30 ml PO DAILY PRN PRN Reason: Constipation Stop: 05/10/17 22:10 Neomycin/Polymyxin/Bacitracin (Triple Antibiotic Pkt) 1 pkt TP DAILY [facility]JA Stop: 05/24/17 08:59 Last Admin: 03/28/17 09:39 Dose: 1 pkt Risperidone (Risperdal) 3 mg PO BID JAJA PRN Reason: Protocol Stop: 05/21/17 08:59 Last Admin: 03/28/17 09:39 Dose: 3 mg Tamsulosin HCl (Flomax) 0.4 mg PO HS JAJA Stop: 05/11/17 20:59 Last Admin: 03/27/17 20:36 Dose: Not Given Zolpidem Tartrate (Ambien) 5 mg PO HS PRN PRN Reason: Insomnia Stop: 05/10/17 22:17 Last Admin: 03/26/17 20:53 Dose: 5 mg General: alert, disheveled HEENT: NC/AT, PERRLA, EOMI Neck: Supple, No JVD Lungs: congested Cardiovascular: RRR, Normal S1, Normal S2 Abdomen: soft, non-tender, tender Extremities: excoriation, ecchymosis Neurological: no change, alert, disorganized Internal Medicine Assmt/Plan - Assessment Assessment: htn psychosis dementia bph - Plan Plan: monitor bp continue current plan of care Nutritional Asmnt/Malnutr-PDOC - Dietary Evaluation Malnutrition Findings (Please click <Entered> for more info): Nutritional Asmnt/Malnutrition Start: 03/16/17 14: 18 Text: Status: Complete Freq: Document 03/16/17 14:18 JORDON (Rec: 03/16/17 14:[facility] Nutritional Asmnt/Malnutrition Patient General Information Nutritional Screening Moderate Risk Diagnosis psychosis Pertinent Medical Hx/Surgical Hx psychosis, BPH, HTN, dementia Subjective Information Pt seen eating lunch in his room at time of visit, easily irritable. Per notes, PO intake 100% x 3 meals on 03/05. Current Diet Order/ Nutrition Support mech soft chopped, PAULINA Pertinent Medications colace, seroquel Pertinent Labs no labs available Nutritional Hx/Data Height 5 ft 10 in Height (Calculated Centimeters) 177.8 Current Weight (lbs) 180 lb Weight (Calculated Kilograms) 81.6 Weight (Calculated Grams) 25814.6 [place] Body Weight 166 % [place] Body Weight 108 Body Mass Index (BMI) 25.8 Weight Status Overweight GI Symptoms GI Symptoms None Last BM 03/15 Difficult in: None Skin Integrity/Comment: skin tear to right arm Current %PO Good (75-100%) Estimated Nutritional Goals Calories/Kcals/Kg 25-30 based on IBW 75kg Kcals Calculated 2922-7800 Protein g/k Protein Calculated 75 Fluid: ml 1875-2250ml (1ml/kcal) Nutritional Problem No current Nutrition Prob Problem N/A Malnutrition Alert Protein-Calorie Malnutrition N/A Is there a minimum of two criteria No selected? Query Text:Check all the applicable criteria. A minimum of two criteria are recommended for diagnosis of either severe or non-severe malnutrition. Intervention/Recommendation Comments 1. Continue with current diet as ordered. 2. Monitor PO intake, wt, labs and skin integrity 3. F/U as low risk in 7 days, 2/1 Expected Outcomes/Goals Expected Outcomes/Goals 1. PO intake to meet at least 75% of nutritional needs. 2. Wt stability, skin to remain intact.
--- NOTE | 2017-03-28 13:30 | Progress Notes ---
DATE: 03/28/2017 PSYCHIATRIC PROGRESS NOTE SUBJECTIVE: Staff was spoken to. The patient is interviewed. Mood is noted to be anxious. The patient is not suicidal or homicidal. No doubt patient is talking to himself, but the patient's aggressive behavior has been coming down. No side effects to the medications are noted. The patient has been able to verbalize the concerns. ASSESSMENT: The patient is stabilizing. PLAN: To discharge the patient today for followup on outpatient basis. [facility]# [id number]
--- NOTE | 2017-04-01 16:52 | Discharge Summary ---
DATE OF DISCHARGE: 03/28/2017 IDENTIFYING DATA: The patient is a 66-year-old woman, resident of a long-term facility. Information obtained by directly interviewing the patient as well as reviewing the admission papers. JUSTIFICATION OF HOSPITALIZATION: The patient is admitted here on a voluntary basis in view of his agitation. CHIEF COMPLAINT: "I am upset for being in here and I do not know what they are giving the medications." DIAGNOSES AT THE TIME OF ADMISSION: AXIS I: Psychotic disorder, not otherwise specified. AXIS II: None. AXIS III: As per Dr. Millan. HISTORY OF PRESENT ILLNESS: Please refer to 03/12/2017 dictation done by me. Physical examination was done by Dr. Millan and is noted to be significant for BPH, hypertension and dementia. HOSPITAL COURSE AND RESPONSE TO TREATMENT: The patient has been observed on inpatient unit, provided with supportive psychotherapy. The patient has been initially tried with the Seroquel and it has been that much of her affective. The patient also has been given the clonazepam, valproic acid and eventually the patient has to be changed from Seroquel to Risperdal and the patient started to tolerate the medications and the impulsivity started to decrease. The patient has been placed on 3 mg twice a day of the risperidone and Depakote was continued. The patient's aggressive behavior started to decrease and the patient has been able to verbalize the concerns rather than to act out. The patient has finally been discharged. The patient was noted to be very restless when he was on the Zyprexa and the patient's family has been informed about the patient's progress and the patient was finally discharged to be followed up on an outpatient basis by Dr. Gunn. MENTAL STATUS EXAMINATION: At the time of discharge, patient's mood, to be anxious. Affect is appropriate. Not suicidal or homicidal. Insight and judgment improving. Impulse control seems to be fair. No side effects to the medications are noted. The patient has been able to verbalize the concerns rather than to act out at the time of the discharge. CONDITION: At the time of discharge noted to be stable. DIAGNOSES AT THE TIME OF DISCHARGE AXIS I: Schizoaffective disorder. AXIS II: None. AXIS III: As per Dr. Millan. AFTERCARE PLAN: The patient is discharged to [facility] for further followup. PROGNOSIS: At the time of discharge noted to be guarded. [facility]# [id number]
== END 2017-03-28 13:10 | disposition home or self-care (01) | DRG 885 ==
LOC: ER 21:13 → GERO 21:45
PROVIDERS: ADMIT Psychiatry & Neurology Psychiatry; ATTEND Psychiatry & Neurology Psychiatry
DX: F29 Unspecified psychosis not due to a substance or known physiological condition (principal); F03.91 Unspecified dementia, unspecified severity, with behavioral disturbance; R26.81 Unsteadiness on feet; F20.9 Schizophrenia, unspecified; N40.0 Benign prostatic hyperplasia without lower urinary tract symptoms; I10 Essential (primary) hypertension; F41.9 Anxiety disorder, unspecified; F63.9 Impulse disorder, unspecified; Z74.01 Bed confinement status; Z87.891 Personal history of nicotine dependence
CPT/HCPCS: 36415-UA; 80164-TC; 90899; G0410; J1200; J1630; J2060; J3230; Z7610